=== PATIENT | female | born 1980 | race Caucasian/White ===

== ENCOUNTER 2017-11-29 06:57 | Inpatient (IN) ==
--- OUTSIDE RECORDS SUMMARY | 2017-11-29 07:04 | External Medical Summary | Continuity of Care Document ---
:1980 Author Organization [facility] Address [address] [place], [place] [address] Phone Support Name Relationship Address Phone Khadar Rosario spouse [address] [phone] [place] [address] Allergies, Adverse Reactions, Alerts Substance Reaction Severity Status No Known Drug Allergies Unknown Active Medications Medication Instructions Dosage Effective Dates Status Comments (start - stop) Diclegis 10 mg-10 take 1 tablet by - Active mg tablet,delayed oral route every release day in the morning, 1 tablet in the mid-afternoon, and 2 tablets at bedtime Prometrium 200 mg take 1 by Vaginal Not Available - Active capsule route every bedtime Aspir-81 81 mg take 1 tablet by 81 MG - Active tablet,delayed oral route every release day 28 mg take 1 by Oral route Not Available - Active iron-800 mcg every day tablet Problems Condition Effective Dates (start - stop) Clinical Status Encntr for f/u exam aft trtmt for cond - oth than malig neoplm Mild hyperemesis gravidarum - Encounter for suprvsn of normal - , first trimester 11 weeks gestation of - Recurrent loss Hyperemesis gravidarum with metabolic disturbance Recurrent loss Encntr for f/u exam aft trtmt for cond oth than malig neoplm Mild hyperemesis gravidarum - Encounter for suprvsn of normal - , first trimester 12 weeks gestation of - Mild hyperemesis gravidarum - Encntr screen for infections w sexl - mode of transmiss Encounter for screening for oth - infec/parastc diseases Encounter for suprvsn of normal - , first trimester Encounter for screening of - mother 8 weeks gestation of - Mild hyperemesis gravidarum - Encounter for suprvsn of normal - , first trimester 13 weeks gestation of - Mild hyperemesis gravidarum - Encounter for suprvsn of normal - , first trimester 10 weeks gestation of - Mild hyperemesis gravidarum - Encounter for suprvsn of normal - , first trimester 13 weeks gestation of - Encounter for screening for oth - infec/parastc diseases Encounter for screening for oth - infec/parastc diseases Active Procedures Procedure Date OB Visit No Charge Results Test Name Date and Time Measure Units Reference Range Abnormal Flag Comments Unknown Advance Directives Directive Yes / No Effective Date File Name Unknown Encounters Encounter Practice Location Reason(s) Diagnoses Date Provider Care Team Description For Visit Members Ginette Hernandez Mild hyperemesis Harriett Referring In Womens gravidarumEncounter 8-201 Serina. Provider: Gladis NUNEZ, for suprvsn of 8 700 [address] normal , Meenu Sanabria, 1522, first [id number] [place] [address], weeks gestation of Kartik Hernandez, 120, [place] [id number], David [facility] 120, David [place], tel:[phone] [place], [id number] , . [id number]. tel: tel:[phone] [facility] Mild hyperemesis Harriett Referring In Womens gravidarumEncounter 3-201 Serina. Provider: Gladis NUNEZ, for suprvsn of 8 700 [address] normal , Meenu Sanabria, 1522, first [id number] Center 700 [place], weeks gestation of Kartik Hernandez [place], 120, [place] [id number] Alcantar [facility] 120, [place] David [place], tel:[phone] [place], , [place]. [id number]. tel: tel:[phone] [facility] Mild hyperemesis Dec-2 Harriett Referring In Womens gravidarumEncounter 7-201 Serina. Provider: Health PA, for suprvsn of 7 700 [address] normal , Medical Harriett L, 1522, first Center [address] [place] [address], weeks gestation of Kartik Hernandez, 120, Center [id number], David [facility] 120, [place] David [place], tel:[phone] [place], , [place]. [id number]. tel: tel:[phone] [facility] Mild hyperemesis Dec-1 Harriett Referring In Womens gravidarumEncounter 9-201 Serina. Provider: Health PA, for suprvsn of 7 700 Serina [address] normal , Medical Harriett L, 1522, first [email or web address] [place] [address], weeks gestation of Kartik Hernandez, 120, Center [id number], David [facility] 120, [place] David [place], tel:[phone] [place], , [place]. [id number]. tel: tel:[phone] [facility] Mild hyperemesis Dec-1 Harriett Referring In Womens gravidarumEncounter 3-201 Serina. Provider: Health PA, for suprvsn of 7 700 [address] normal , Medical Harriett L, 1522, first [id number] [place] [address], weeks gestation of Kartik Hernandez, 120, Center [id number], David [facility] 120, [place] David [place], tel:[phone] [place], , [place]. [id number]. tel: tel:[phone] [facility] Mild hyperemesis Dec-0 Harriett Referring In Womens gravidarumEncntr 4-201 Serina. Provider: Health PA, screen for 7 700 Serina [address] Box infections w sexl Medical Harriett L, 1522, mode of Center [facility] [place], yennyEncvan Hernandez, [facility], for screening for 120, [place] [id number], oth infec/parastc David [facility] 120, [facility] [place], tel:2 for suprvsn of [phone] [place], normal , , [place]. [id number]. first tel: [facility] [phone] for screening of mother8 weeks gestation of [facility] Recurrent Nov-2 Gurinder Referring In Womens lossHyperemesis 7-201 Dinah. Provider: Gladis NUNEZ, gravidarum with 7 700 Serina PO Box metabolic Medical Harriett L, 1522, disturbance Center [facility] Dr Chirag, [facility], 120, [place] [id number], David [facility] 120, David [place], tel:[phone] , [place]. [id number]. tel: tel: [phone] [facility] Nov- Harriett In Womens 6-201 Serina. Gladis NUNEZ, 7 700 PO [address] Medical [address], [place] [address] Chirag, [facility], 120, [id number], David, [place], tel: [phone] , [place]. tel: [phone] [facility] Recurrent Kings-3 Harriett Referring In Womens lossEncntr for f/u 0-201 Serina. Provider: Gladis NUNEZ, exam aft trtmt for 7 700 Serina PO Box cond oth than malig Medical Harriett L, 1522, neoplm Center [facility] Dr Chirag, [facility], 120, [place] [id number], David [facility] 120, David [place], tel: [phone] [place], , [place]. [id number]. tel: tel:[phone] [facility] Encounter for Aug- Harriett Referring In Womens screening for oth 9-201 Serina. Provider: Gladis NUNEZ, infec/parastc 7 700 Serina PO Box diseases Medical Harriett L, 1522, Center [address], [facility], 120, [place] [id number], David, [facility] 120, David [place], tel:[phone] [place], , [place]. [id number]. tel: tel:[phone] Ginette Hernandez Encntr for f/u exam Nov- Harriett Referring In Womens aft trtmt for cond 1-201 Serina. Provider: Gladis NUNEZ, rosa [facility] 6 700 Serina PO Box neoplm Medical Harriett L, 1522, Center [facility] Dr Chirag, [facility], 120, [place] [id number], [facility], David [place], tel:[phone] [place], , [place]. [id number]. tel: tel:[phone] Ginette Hernandez Encounter for Kings-0 Harriett Referring In Womens screening for oth 1-201 Serina. Provider: Gladis NUNEZ, infec/parastc 6 700 Serina PO Box diseases Medical Harriett L, 1522, Center [address], [facility], 120, [place] [id number], [facility] 120, David [place], tel:[phone] [place], , [place]. [id number]. tel: tel:[phone] Ginette Hernandez September-2 Rudolph In Womens 1-200 Maryan. Health MAYRA, 8 700 PO [address] Medical [address], [place] [address] Chirag, [facility] [place], 120, [id number], David, [place], tel:[phone] , [place]. tel: [phone] Family History Family Member Diagnosis Age At Onset No family history of Ovarian Cancer No family history of Pulmonary Embolism No family history of Kidney Problems No family history of Lung Disease No family history of Breast Cancer Maternal Grandmother Diabetes mellitus No family history of Hypertension No family history of Epilepsy No family history of Cardiovascular Disease Maternal Grandmother Diabetes mellitus No family history of Colon Cancer No family history of Stroke No family history of Venous Thrombosis No family history of Thyroid Disorder No family history of Osteoporosis Immunizations Vaccine Date Status Comments Unknown Payers Payer name Insurance type Covered republican ID Authorization(s) TRACEY ALEMAN [id number] Social History Type Description Quantity Date Captured Alcohol Use Details No Caffeine Use Details Unknown Tobacco Use Status Unknown Smoking Status Never smoker Vital Signs Date / Height Weight BMI Pulse Blood Temperature Respiratory Body Head BMI Time: Rate Pressure Rate Surface Circumference percentile Area Unknown Chief Complaint And Reason For Visit Unknown Chief Complaint And Reason For Visit Reason For Referral Reason For Referral Unknown Plan Of Care Date Type Action Status Appointment Kerry Rosario BOOKED Appointment Kerry Rosario BOOKED Appointment Kerry Rosario BOOKED Date Type Problem Goal Intervention Status Start Date Unknown. History Of Present Illness Encounter Date Complaint History Of Present Illness This patient has no known history of present illness Functional Status Encounter Date Functional Assessment Cognitive Assessment Unknown Medications Administered Medication Instructions Dosage Effective Dates (start - stop) Status Comments Drug Treatment Unknown Instructions Date Instruction Additional Information HIV and other routine tests risk factors identified by history anticipated course of care nutrition and weight gain counseling, special diet toxoplasmosis precautions (cats / raw meat) sexual activity exercise indications for ultrasound influenza vaccine environmental / work hazards travel use of any medications (including supplements, vitamins, herbs, OTC drugs) domestic violence seat belt use childbirth classes / hospital facilities hospital registration genetic testing new ob handbook Giving encouragement to exercise Related to Body mass index 25.0-25.9 HIV and other routine tests risk factors identified by history anticipated course of care nutrition and weight gain counseling, special diet toxoplasmosis precautions (cats / raw meat) sexual activity exercise indications for ultrasound influenza vaccine environmental / work hazards travel use of any medications (including supplements, vitamins, herbs, OTC drugs) domestic violence seat belt use childbirth classes / hospital facilities hospital registration genetic testing Giving encouragement to exercise Related to Body mass index 25.0-25.9 HIV and other routine tests risk factors identified by history anticipated course of care nutrition and weight gain counseling, special diet toxoplasmosis precautions (cats / raw meat) sexual activity exercise indications for ultrasound influenza vaccine environmental / work hazards travel tobacco (ask, advise, assess, assist and arrange) alcohol illicit / recreational drugs use of any medications (including supplements, vitamins, herbs, OTC drugs) smoking counseling domestic violence seat belt use childbirth classes / hospital facilities hospital registration genetic testing
--- OUTSIDE RECORDS SUMMARY | 2017-11-29 07:04 | External Medical Summary | Continuity of Care Document ---
:1980 Author Organization [facility] Address [address] [place], [place] [address] Phone Support Name Relationship Address Phone Khadar Rosario spouse [address] [phone] [place] [address] Allergies, Adverse Reactions, Alerts Substance Reaction Severity [...] for cond - oth than malig neoplm Recurrent loss Hyperemesis gravidarum with metabolic disturbance Recurrent loss Encntr for f/u exam aft trtmt for cond oth than malig neoplm Mild hyperemesis gravidarum - Encntr screen for infections w sexl - mode of transmiss Encounter for screening for oth - infec/parastc diseases Encounter for suprvsn of normal - , first trimester Encounter for screening of - mother 8 weeks gestation of - Encounter for screening for oth - infec/parastc diseases Encounter for screening for oth - infec/parastc diseases Active Procedures Procedure Date Unknown Results Test Name Date and Time Measure Units Reference Range Abnormal Flag Comments Unknown Advance Directives Directive Yes / No Effective Date File Name Unknown Encounters Encounter Practice Location Reason(s) Diagnoses Date Provider Care Team Description For Visit Members [facility] Mild hyperemesis Harriett Referring In Womens gravidarumEncntr 4-201 Serina. Provider: Gladis NUNEZ, screen for 7 700 Serina [address] infections w sexl Medical Harriett L, 1522, mode of Center 700 [place], yennyEncvan Hernandez, [facility], for screening for 120, [place] [id number], ot infec/parastc [facility] 120, [facility] David [place], tel: for suprvsn of [phone] [facility] normal , , [place]. [id number]. first tel: [facility]: [facility] [phone] for screening of mother8 weeks gestation of Associates [facility] Recurrent Gurinder Referring In Womens lossHyperemesis 7-201 Dinah. Provider: Gladis NUNEZ, gravidarum with 7 700 Serina PO Box metabolic Meenu Lorenzana L, 1522, disturbance Center [facility] Dr Chirag, [facility], 120, [place] [id number], David [place] [address], David [place], tel: [phone] [facility] , [place]. [id number]. tel: tel: [phone] Ginette Hernandez Mar- Harriett In Womens 6-201 Serina. Gladis NUNEZ, 7 700 [address] Medical [address], [place] [address] Chirag, [facility], 120, [id number], David, [facility], tel: [phone] , [place]. tel: [phone] Ginette Hernandez Recurrent Harriett Referring In Womens lossEncntr for f/u 0-201 Serina. Provider: Gladis NUNEZ, exam aft trtmt for 7 700 Serina PO Box cond oth than malig Medical Harriett L, 1522, neoplm Center [address], [facility] [place], 120, Center [id number], David, [facility] 120, [place] David [place], tel:[phone] [place], , [place]. [id number]. tel: tel:[phone] [facility] Encounter for Apr-1 Harriett Referring In Womens screening for oth 9-201 Serina. Provider: Gladis NUNEZ, infec/parastc 7 700 Serina PO Box diseases Medical Harriett L, 1522, Center [address], [facility] [place], 120, Center [id number], David, [facility] 120, [place] David [place], tel:[phone] [place], , [place]. [id number]. tel: tel:[phone] Ginette Hernandez Encntr for f/u exam Yunior-1 Harriett Referring In Womens aft trtmt for cond 1-201 Serina. Provider: zane Andujar 6 700 Serina PO Box neoplm Medical [facility] L, 1522, Center [address], [facility] [place], 120, [place] [id number], David, [facility] 120, [place] David [place], tel:[phone] [place], , [place]. [id number]. tel: tel:[phone] Ginette Hernandez Encounter for Kings-0 Harriett Referring In Womens screening for oth 1-201 Serina. Provider: Gladis NUNEZ, infec/parastc 6 700 Serina PO Box diseases Medical Harriett L, 1522, Center [address], [facility] [place], 120, [place] [id number], David, [facility] 120, [place] David [place], tel:[phone] [place], , [place]. [id number]. tel: tel:[phone] Ginette Hernandez May-2 Rudolph In Womens 1-200 Maryan. Gladis NUENZ, 8 700 [address] Medical [address], Center Dr Chirag, [facility] [place], 120, [id number], [facility] [place], tel:[phone] , . tel:[phone] Family History Family Member Diagnosis Age At [...] Unknown Payers Payer name Insurance type Covered democrat ID Authorization(s) [facility] [id number] Social History Type Description Quantity Date Captured Unknown Vital Signs Date / Height Weight BMI [...]
--- OUTSIDE RECORDS SUMMARY | 2017-11-29 07:05 | External Medical Summary | Continuity of Care Document ---
:1980 Author Organization [facility] [employer] [facility] Address [address] [place], [place] [address] Phone Support Name Relationship Address Phone Khadar Rosario spouse [address] [phone] [place] [address] Allergies, Adverse Reactions, Alerts Substance Reaction Severity Status No Known Drug Allergies Unknown Active Medications Medication Instructions Dosage Effective Status Comments Dates (start - stop) Diclegis 10 mg-10 mg take 1 tablet by - Active tablet,delayed oral route every release day in the morning, 1 tablet in the mid-afternoon, and 2 tablets at bedtime Zofran ODT 4 mg take 1 by Oral Not Available - Active disintegrating route every 6 tablet hours as needed for nausea Prometrium 200 mg take 1 by Vaginal Not Available - Active capsule route every bedtime Aspir-81 81 mg take 1 tablet by 81 MG - Active tablet,delayed oral route every release day 28 mg take 1 by Oral Not Available - Active iron-800 mcg tablet route every day Diclegis 10 mg-10 mg take 1 tablet by - No Longer tablet,delayed oral route every Active release day in the morning, 1 tablet in the mid-afternoon, and 2 tablets at bedtime Problems Condition Effective Dates (start - stop) Clinical Status Encntr for f/u exam aft trtmt for cond - oth than malig neoplm Recurrent loss Hyperemesis gravidarum with metabolic disturbance Recurrent loss Encntr for f/u exam aft trtmt for cond oth than malig neoplm Encounter for screening for oth - infec/parastc diseases Encounter for screening for oth - infec/parastc diseases Active Procedures Procedure Date Office/outpatient visit,est, mod Results Test Name Date and Time Measure Units Reference Range Abnormal Flag Comments Unknown Advance Directives Directive Yes / No Effective Date File Name Unknown Encounters Encounter Practice Location Reason(s) Diagnoses Date Provider Care Team Description For Visit Members Office/outpat Ginette Hernandez early OB Recurrent Nov-2 Gurinder Referring ient In Womens (chief 7-201 Dinah. Provider: visit,est, Health MAYRA, complaint) lossHyperemesis 7 700 Serina mod [address], gravidarum with Meenu Sanabria [place], [place], metabolic Center 700 [id number], branden Hernandez, [facility] 120, [place] tel:[phone] David [facility] 120, [address] [place], [place], [id number] [place], , [place]. [id number]. tel: tel:[phone] Ginette Hernandez Nov- Harriett In Womens 6-201 Serina. Gladis NUNEZ, 7 700 [address], [place], Center [id number], , [facility] 120, tel:[phone] [place], [address] [place], [id number] , [place]. tel: [phone] Ginette Hernandez Recurrent Kings-3 Harriett Referring In Womens 0-201 Serina. Provider: Gladis NUNEZ, kaeEncntr for 7 [address] Ser[address], f/u exam aft [place], trtmt for cond Center 700 [id number], ot [address], [facility] neoplm 120, [place] tel:[phone] David [facility] 120, [address] [place], [place], [id number] [place], , [place]. [id number]. tel: tel:[phone] Ginette Hernandez Encounter for Apr- Harriett Referring In Womens screening for 9-201 Serina. Provider: Gladis NUNEZ, ot 7 [address], infec/parastc [place], diseases Center 700 [id number], , [facility] 120, [place] tel:+21 David [facility] 120, [address] [place], [place], [id number] [place], , [place]. [id number]. tel: tel:[phone] Ginette Hernandez Encntr for f/u Nov-1 Harriett Referring In Womens exam aft trtmt 1-201 Serina. Provider: konstantin Andujar cond oth 6 700 [address], than [facility] Medical Harriett , [place], [place], neoplm Center 700 [id number], , [facility] 120, [place] tel:+[phone] [facility] 120, [address] [place], [place], [id number] [place], , [place]. [id number]. tel: tel:+ [phone] Ginette Hernandez Encounter for Kings-0 Harriett Referring In Womens screening for 1-201 Serina. Provider: Gladis NUNEZ, ot 6 700 [address], infec/parastc Medical Harriett [place], [place], diseases Center 700 [id number], , [facility] 120, [place] tel:[phone] [facility] 120, [address] [place], [place], [id number] [place], , [place]. [id number]. tel: tel:+ [phone] Ginette Hernandez September-2 Rudolph In Womens 1-200 Maryan. Gladis NUNEZ, 8 700 [address], [place], [place], [place] [id number], , [facility] 120, tel:+[phone] [place] [address] [place], [id number] , [place]. tel: [phone] Family History Family Member Diagnosis Age At [...] name Insurance type Covered democrat ID Authorization(s) TRACEY ALEMAN [id number] Social History Type Description Quantity Date Captured Alcohol Use Details No Caffeine Use Details Unknown Tobacco Use Status Never smoked tobacco Smoking Status Never smoker Vital Signs Date / Height Weight BMI Pulse Blood Temperature Respiratory Body Head BMI Time: Rate Pressure Rate Surface Circumference percentile Area 0.00 in 167.60 27.0 74 123/79 lbs 5 /min mm[Hg] 2:01 kg/m PM eter (2) Chief Complaint And Reason For Visit Most recent encounter only, dated '04/23/2017 14:00'. early OB (chief complaint). Description: LMP 103. 7 wks 6 days with EDC of 12/04/17. Positive preg test 04/02/17. Hx of multiple SAB's and bad hyperemesis with pregnancies. Vomiting 2 x/day. OnDiclefis ( 2 at hs) which is helping a little. No bl/sp. Reason For Referral Reason For Referral Unknown Plan Of Care Date Type Action Status Appointment Kerry Rosario BOOKED Appointment Kerry Rosario BOOKED Appointment Kerry Rosario BOOKED Kerry Berry BOOKED Appointment Kerry Rosario BOOKED Kerry Berry BOOKED Appointment Kerry Rosario BOOKED Appointment Kerry Rosario BOOKED Appointment Kerry Rosario BOOKED Date Type Problem Goal Intervention Status Start Date Unknown. History Of Present Illness Encounter Date Complaint History Of Present Illness early OB LMP 103. 7 wks 6 days with EDC of 12/04/17. Positive preg test 04/02/17. Hx of multiple SAB's and bad hyperemesis with pregnancies. Vomiting 2 x/day. On Diclefis ( 2 at hs) which is helping a little. No bl/sp. Functional Status Encounter Date Functional Assessment Cognitive Assessment Unknown Medications Administered Medication Instructions Dosage Effective Dates (start - stop) Status Comments Drug Treatment Unknown Instructions Date Instruction Additional Information Giving encouragement to exercise Related to Body [...] / hospital facilities hospital registration genetic testing Zika virus assessment & precautions Giving encouragement to exercise Related to Body [...]
--- OUTSIDE RECORDS SUMMARY | 2017-11-29 07:05 | External Medical Summary | Continuity of Care Document ---
:1980 Author Organization [facility] Address [address] [place], [place] [address] Phone Support Name Relationship Address Phone Khadar Rosario spouse [address] [phone] [place] [address] Allergies, Adverse Reactions, Alerts Substance Reaction Severity Status No Known Drug Allergies Unknown Active Medications Medication Instructions Dosage Effective Dates Status Comments (start - stop) 28 mg take 1 by Oral route Not Available - Active iron-800 mcg every day tablet Problems Condition Effective Dates (start - stop) Clinical Status Encntr for f/u exam aft trtmt for cond - oth than malig neoplm Mild hyperemesis gravidarum - Unspecified abnormal findings in urine - Encounter for suprvsn of normal - , second trimester 25 weeks gestation of - Recurrent loss Hyperemesis gravidarum with metabolic disturbance Recurrent loss Encntr for f/u exam aft trtmt for cond oth than malig neoplm Mild hyperemesis gravidarum - Encounter for suprvsn of normal - , first trimester 12 weeks gestation of - Mild hyperemesis gravidarum - Unspecified abnormal findings in urine - Encounter for suprvsn of normal - , second trimester 15 weeks gestation of - Mild hyperemesis gravidarum - Encounter for suprvsn of normal - , second trimester 16 weeks gestation of - Mild hyperemesis gravidarum - Encntr screen for infections w sexl - mode of transmiss Encounter for screening for oth - infec/parastc diseases Encounter for suprvsn of normal - , first trimester Encounter for screening of - mother 8 weeks gestation of - Mild hyperemesis gravidarum - Encounter for suprvsn of normal - , second trimester 17 weeks gestation of - Mild hyperemesis gravidarum - Encounter for suprvsn of normal - , first trimester 13 weeks gestation of - Mild hyperemesis gravidarum - Encounter for suprvsn of normal - , first trimester 11 weeks gestation of - Mild hyperemesis gravidarum - Encounter for suprvsn of normal - , first trimester 10 weeks gestation of - Mild hyperemesis gravidarum - Unspecified placental disorder, second - trimester Encounter for suprvsn of normal - , second trimester 23 weeks gestation of - Mild hyperemesis gravidarum - Encounter for suprvsn of normal - , first trimester 13 weeks gestation of - Unspecified placental disorder, second - trimester 25 weeks gestation of - Unspecified placental disorder, second - trimester Encounter for suprvsn of normal - , second trimester 21 weeks gestation of - Unspecified placental disorder, second - trimester Encounter for suprvsn of normal - , second trimester 19 weeks gestation of - Unspecified placental disorder, second - trimester Encounter for suprvsn of normal - , second trimester 27 weeks gestation of - Encounter for screening for oth - infec/parastc diseases Encounter for screening for oth - infec/parastc diseases Encounter for suprvsn of normal - , second trimester 19 weeks gestation of - Active Procedures Procedure Date OB Visit No Charge Automated hemogram (CBC) Glucose test Venpnctr fngr/heel/ear stick routne Results Test Name Date and Time Measure Units Reference Range Abnormal Flag Comments Panel Description: CBC With Differential/Platelet WBC 13:02:00 10.4 x10E3/uL 3.4-10.8 RBC 13:02:00 3.71 x10E6/uL 3.77-5.28 L Hemoglobin 13:02:00 10.9 g/dL 11.1-15.9 L Hematocrit 13:02:00 34.4 % 34.0-46.6 MCV 13:02:00 93 fL 79-97 MCH 13:02:00 29.4 pg 26.6-33.0 MCHC 13:02:00 31.7 g/dL 31.5-35.7 RDW 13:02:00 13.7 % 12.3-15.4 Platelets 13:02:00 263 x10E3/uL 150-379 Neutrophils 13:02:00 76 % Not Estab. Lymphs 13:02:00 18 % Not Estab. Monocytes 13:02:00 5 % Not Estab. Eos 13:02:00 1 % Not Estab. Basos 13:02:00 0 % Not Estab. Immature Cells 13:02:00 Neutrophils (Absolute) 13:02:00 7.8 x10E3/uL 1.4-7.0 H Lymphs (Absolute) 13:02:00 1.9 x10E3/uL 0.7-3.1 Monocytes(Absolute) 13:02:00 0.6 x10E3/uL 0.1-0.9 Eos (Absolute) 13:02:00 0.2 x10E3/uL 0.0-0.4 Baso (Absolute) 13:02:00 0.0 x10E3/uL 0.0-0.2 Immature Granulocytes 13:02:00 0 % Not Estab. Immature Grans (Abs) 13:02:00 0.0 x10E3/uL 0.0-0.1 NRBC 13:02:00 Hematology Comments: 13:02:00 Panel Description: Glucose [Mass/volume] in Serum or Plasma --1 hour post 50 g glucose PO Gestational Diabetes Screen 13:02:00 73 mg/dL 65-135 Advance Directives Directive Yes / No Effective Date File Name Unknown Encounters Encounter Practice Location Reason(s) Diagnoses Date Provider Care Team Description For Visit Members Ginette Hernandez Unspecified Aug- Harriett Referring In Womens placental 6-201 Serina. Provider: orly Andujar, [facility] 8 700 Serina PO Box trimesterEncounte Medical Harriett Sanabria, 1522, r for supraileen of [address], normal , Kartik Hernandez, second 120, [place] [id number], [email or web address] weeks [facility] 120, [place] gestation of David MONTESINOS, tel: [phone] [facility] , [place]. [id number]. tel: tel:[phone] Ginette Hernandez Mild hyperemesis Apr-0 Harriett Referring In Womens gravidarumUnspeci 2-201 Serina. Provider: Gladis NUNEZ fied abnormal 8 700 Serina PO Box findings in Medical Harriett L, 1522, urineEncounter Center [address] [place] [address], for suprvsn of Kartik Hernandez, normal , 120, Center [id number], second [facility] 120, [place] [email or web address] weeks David MONTESINOS, tel:2 gestation of [id number] [facility] , [place]. [id number]. tel: tel:[phone] Ginette Hernandez Unspecified Apr-0 Harriett Referring In Womens Ultrasound placental 2-201 Serina. Provider: Health MAYRA, disorder, second 8 700 Serina PO Box [email or web address] weeks Medical Harriett L, 1522, gestation of [address], DrKartik, 120, Center [id number], Hernandez, [facility] 120, [place] David MONTESINOS, tel:[phone] [place], , [place]. [id number]. tel: tel:[phone] Associates David Mild hyperemesis Mar-1 Harriett Referring In Womens gravidarumUnspeci 9-201 Serina. Provider: Gladis NUNEZ, fied placental 8 700 Serina PO Box disorder, second Medical Harriett L, 1522, trimesterEncounte Center [address] [place] [address], r for suprvsn of Kartik Hernandez, normal , 120, Center [id number], second David [facility] 120, [place] [email or web address] weeks David MONTESINOS, tel:+[phone] [place], , [place]. [id number]. tel: tel:[phone] Associates David Unspecified Mar-0 Harriett Referring In Womens placental 5-201 Serina. Provider: Gladis NUNEZ, disorder, second 8 700 Serina PO Box [facility] Harriett L, 1522, r for suprvsn of [address], normal , Kartik Hernandez, second 120, Center [id number], [email or web address] weeks Hernandez, [facility] 120, [place] gestation of David MONTESINOS, tel:[phone] [place], , [place]. [id number]. tel: tel:[phone] Associates David Unspecified Feb-1 Harriett Referring In Womens placental 9-201 Serina. Provider: Gladis NUNEZ, disorder, second 8 700 Serina PO Box [facility]En[facility] Medical Harriett L, 1522, r for suprvsn of [address], normal , Kartik Hernandez, second 120, Center [id number], [email or web address] weeks Hernandez, Kartik 120, [place] gestation of David MONTESINOS tel:+ [phone] [place], , [place]. [id number]. tel: tel:[phone] Associates David Encounter for Feb-1 Harriett Referring In Womens Ultrasound suprvsn of normal 9-201 Serina. Provider: Gladis NUNEZ, , second 8 700 Serina PO Box [email or web address] weeks Medical Harriett L, 1522, gestation of Center [address], , [facility] [address] [place], 120, Center [id number], Hernandez, Kartik 120, [place] David MONTESINOS, tel:+ [phone] [place], , [place]. [id number]. tel: tel:[phone] Associates David Mild hyperemesis Feb-0 Harriett Referring In Womens gravidarumEncount 5-201 Serina. Provider: Gladis NUNEZ, er for suprvsn of 8 700 Serina PO Box normal , Medical Harriett L, 1522, second Center [address], [email or web address] [facility] [place], gestation of 120, Center [id number], David, Kartik 120, [place] David MONTESINOS, tel:[phone] [place], , [place]. [id number]. tel: tel:[phone] Associates David Mild hyperemesis Kofi- Harriett Referring In Womens gravidarumEncount 4-201 Serina. Provider: Gladis NUNEZ, er for suprvsn of 8 700 Serina PO Box normal , Medical Harriett L, 1522, second Center [address], [email or web address] weeks Dr [facility] [place], gestation of 120, Center [id number], Hernandez, Kartik 120, [place] David MONTESINOS, tel:+ [phone] [place], , [place]. [id number]. tel: tel:[phone] Associates David Mild hyperemesis Kofi- Harriett Referring In Womens gravidarumUnspeci 8-201 Serina. Provider: Gladis NUNEZ, fied abnormal 8 700 Serina PO Box findings in Medical Harriett L, 1522, urineEncounter Center [address] [place] [address], for suprvsn of Kartik Hernandez, normal , 120, Center [id number], second David Kartik 120, [place] [email or web address] weeks David MONTESINOS, tel:[phone] [place], , [place]. [id number]. tel: tel:[phone] Associates David Mild hyperemesis Kofi-0 Harriett Referring In Womens gravidarumEncount 8-201 Serina. Provider: Health PA, er for suprvsn of 8 700 Serina PO Box normal , Medical Harriett Sanabria, 1522, first [email or web address] [place] [address], weeks gestation Kartik Hernandez, of 120, Center [id number], David [facility] 120, [place] David MONTESINOS, tel:[phone], , [place]. [id number]. tel: tel:[phone] Ginette Hernandez Mild hyperemesis Kofi-0 Harriett Referring In Womens gravidarumEncount 3-201 Serina. Provider: Health PA, er for suprvsn of 8 700 Serina PO Box normal , Medical Harriett Sanabria, 1522, first [email or web address] [place] [address], weeks gestation Kartik Hernandez, of 120, Center [id number], David [facility] 120, [place] David MONTESINOS, tel:[phone], , [place]. [id number]. tel: tel:[phone] Ginette Hernandez Mild hyperemesis Dec-2 Harriett Referring In Womens gravidarumEncount 7-201 Serina. Provider: Health PA, er for suprvsn of 7 700 Serina PO Box normal , Medical Harriett Sanabria, 1522, first [email or web address] [place] [address], weeks gestation Kartik Hernandez, of 120, Center [id number], David [facility] 120, [place] Daivd MONTESINOS, tel:[phone], , [place]. [id number]. tel: tel:[phone] Ginette Hernandez Mild hyperemesis Dec-1 Harriett Referring In Womens gravidarumEncount 9-201 Serina. Provider: Health PA, er for suprvsn of 7 700 Serina PO Box normal , Medical Harriett L, 1522, first [email or web address] [place], [place] [address], weeks gestation Kartik Hernandez, of 120, Center , David [facility] 120, David MONTESINOS, tel:[phone] [place], , [place]. [id number]. tel: tel:[phone] Associates David Mild hyperemesis Dec-1 Harriett Referring In Womens gravidarumEncount 3-201 Serina. Provider: Health MAYRA, er for suprvsn of 7 700 Serina PO Box normal , Medical Harriett L, 1522, first Center [address] [place] [address], weeks gestation Kartik Hernandez, of 120, [place] [id number], David [facility] 120, [place] David MONTESINOS, tel:[phone] [place], , [place]. [id number]. tel: tel:[phone] Associates David Mild hyperemesis Dec-0 Harriett Referring In Womens gravidarumEncntr 4-201 Serina. Provider: Gladis NUNEZ, screen for 7 700 Serina PO Box infections w sexl Medical Harriett L, 1522, mode of Center [address] [place] [address], transmissEncounte Kartik Hernandez, r for screening 120, [place] [id number], for oth David [facility] 120, [place] infec/parastc David MONTESINOS, tel:[phone], for suprvsn of , [place]. [id number]. normal , tel: tel:[phone] trimesterEncounte r for screening of mother8 weeks gestation of Associates David Recurrent Nov- Gurinder Referring In Womens 7-201 Dinah. Provider: Gladis NUNEZ, lossHyperemesis 7 700 Serina PO Box gravidarum with Medical Harriett L, 1522, metabolic Center [address], [facility], 120, Center [id number], David, [facility] 120, [place] David MONTESINOS, tel:[phone], , [place]. [id number]. tel: tel:[phone] Ginette Hernandez Recurrent Kings-3 Harriett Referring In Womens 0-201 Serina. Provider: Health MAYRA, lossEncntr for 7 700 Serina PO Box f/u exam aft Medical Harriett L, 1522, trtmt for cond [address], ot than angelina Hernandez, [facility], [facility] 120, [place] [id number], David [facility] 120, [place] David MONTESINOS, tel:[phone], , [place]. [id number]. tel: tel:[phone] Ginette Hernandez Encounter for Apr-1 Harriett Referring In Womens screening for oth 9-201 Serina. Provider: Health MAYRA, infec/parastc 7 700 Serina PO Box diseases Medical Harriett L, 1522, Center [address] Dr Ch[address]ag, [facility], 120, Center [id number], David [facility] 120, David MONTESINOS, tel:[phone] [place], , [place]. [id number]. tel: tel:[phone] Ginette Hernandez Encntr for f/u Yunior-1 Harriett Referring In Womens exam aft trtmt 1-201 Serina. Provider: Gladis NUNEZ, for cond oth than 6 700 Serina PO Box [facility] Harriett L, 1522, Center [address] Dr [address]ir[address], [facility], 120, [place] [id number], David [facility] 120, [place] David MONTESINOS, tel:[phone], , [place]. [id number]. tel: tel:[phone] Ginette Hernandez Encounter for Kings-0 Harriett Referring In Womens screening for oth 1-201 Serina. Provider: Health PA, infec/parastc 6 700 Serina PO Box diseases Medical Harriett L, 1522, Center [address]ir[address], [facility], 120, [place] [id number], David [facility] 120, YAMEL, David, tel: [phone] [place], [address] , . [id number]. tel: tel: [phone] Ginette Hernandez [place] In Womens 1-200 [facility], 8 700 Box Medical 1522, Center Dr Chirag, [facility] [place], 120, [id number], Hernandez, [place], tel: [phone] , [place]. tel: [phone] Family History Family Member Diagnosis Age At [...] name Insurance type Covered republican ID Authorization(s) [facility] [id number] Social History Type Description Quantity Date Captured Alcohol Use Details No Caffeine Use Details Unknown Tobacco Use Status Unknown Smoking Status Never smoker Vital Signs Date / Height Weight BMI Pulse Blood Temperature Respiratory Body Head BMI Time: Rate Pressure Rate Surface Circumference percentile Area 179.10 28.0 / lbs 5 mm[Hg] 10:13 kg/m AM eter (2) Chief Complaint And Reason For Visit Unknown Chief Complaint And Reason For Visit Reason For Referral Reason For Referral Unknown Plan Of Care Date Type Action Status Appointment Kerry Rosario BOOKED Appointment Kerry Rosario BOOKED Appointment Kerry Rosario BOOKED Future Order: Radiology Order Ultrasound OB Follow-up ([id number]) Ordered Future Order: Radiology Order Complete OB Ultrasound > 14 Ordered Weeks ([id number]) Date Type Problem Goal Intervention Status Start [...]
--- OUTSIDE RECORDS SUMMARY | 2017-11-29 07:05 | External Medical Summary | Continuity of Care Document ---
:1980 Author Organization [facility] Address [address] [place], [place] [id number] Phone Support Name Relationship Address Phone Khadar Rosario spouse [address] [phone] [place] [address] Allergies, Adverse Reactions, Alerts Substance Reaction Severity [...] first trimester 10 weeks gestation of - Recurrent loss Hyperemesis [...] first trimester 11 weeks gestation of - Encounter for screening [...] For Visit Members Associates David Mild hyperemesis Dec-2 Harriett Referring In Womens gravidarumEncounter 7-201 Serina. Provider: Gladis NUNEZ, for suprvsn of 7 700 Serina PO Box normal , Medical Harriett L, 1522, first [email or web address] [place] [address], weeks gestation of Kartik Hernandez [place], 120, [place] [id number], David [facility] 120, [place] David MONTESINOS, tel:[phone] [place], [address] , [place]. [id number]. tel: tel:[phone] Associates David Mild hyperemesis Dec-1 Harriett Referring In Womens gravidarumEncounter 9-201 Serina. Provider: Gladis NUNEZ, for suprvsn of 7 700 Serina PO Box normal , Medical Harriett L, 1522, first [email or web address] [address] [place] [address], weeks gestation of Kartik Hernandez, 120, [place] [id number], David [facility] 120, [place] David MONTESINOS, tel:[phone] YAMEL, [address] , . [id number]. tel: tel:[phone] Associates David Mild hyperemesis Dec-1 Harriett Referring In Womens gravidarumEncounter 3-201 Serina. Provider: Galdis NUNEZ, for suprvsn of 7 700 Serina PO Box normal , Medical Harriett L, 1522, first [email or web address] [place], [place] [address], weeks gestation of Dr, [facility], 120, Center , [facility] 120, David MONTESINOS, tel:+ [phone] [place], , [place]. [id number]. tel: tel:[phone] Associates David Mild hyperemesis Dec-0 Harriett Referring In Womens gravidarumEncntr 4-201 Serina. Provider: Gladis NUNEZ, screen for 7 700 Serina PO Box infections w sexl Medical Harriett L, 1522, mode of Center [facility] Chirag, transmissEncvan Hernandez, [facility], for screening for 120, [place] [id number], ot infec/parastc [place] [address], diseasesEncmcl[facility] David MONTESINOS, tel: for suprvsn of [phone] [facility] normal , , [place]. [id number]. first tel: tel:+ trimesterEncmclaren [facility] [phone] for screening of mother8 weeks gestation of Associates David Recurrent Mar-2 Gurinder Referring In Womens lossHyperemesis 7-201 Dinah. Provider: Gladis NUNEZ, gravidarum with 7 700 Serina PO Box metabolic Medical Hrariett L, 1522, disturbance Center [facility] Dr Chirag, [facility], 120, [place] [id number], [place] [address], David MONTESINOS, tel:+ [phone] [place], , [place]. [id number]. tel: tel:[phone] Associates David Nov- Harriett In Womens 6-201 Serina. Gladis NUNEZ, 7 700 PO Box Medical 1522, Center Dr Chirag, [facility], 120, [id number], David, YAMEL, tel:[phone] , [place]. tel: [phone] Ginette Hernandez Recurrent Kings-3 Harriett Referring In Womens lossEncntr for f/u 0-201 Serina. Provider: Health MAYRA, exam aft trtmt for 7 700 Serina PO Box cond oth than malig Medical [facility] L, 1522, neoplm Center [address], [facility] [place], 120, Center [id number], David, [facility] 120, [place] David MONTESINOS, tel:[phone] [place], , [place]. [id number]. tel: tel:[phone] Ginette Hernandez Encounter for Apr- Harriett Referring In Womens screening for oth 9-201 Serina. Provider: Health MAYRA, infec/parastc 7 700 Serina PO Box diseases Medical Harriett L, 1522, Center [address], [facility], 120, Center [id number], David, [facility] 120, [place] David MONTESINOS, tel:[phone] [place], , [place]. [id number]. tel: tel:[phone] Hernandez Encntr for f/u exam Nov- Harriett Referring In Womens aft trtmt for cond 1-201 Serina. Provider: zane Andujar [facility] 6 700 Serina PO Box [facility], 1522, Center [address], [facility], 120, Center [id number], [facility] 120, [place] David MONTESINOS, tel:[phone] [place], , [place]. [id number]. tel: tel:[phone] Hernandez Encounter for Kings-0 Harriett Referring In Womens screening for oth 1-201 Serina. Provider: Gladis NUNEZ, infec/parastc 6 700 Serina PO Box diseases Medical Harriett L, 1522, Center [address], [facility] [place], 120, Center [id number], David, [facility] 120, [place] David MONTESINOS, tel:[phone] [place], , [place]. [id number]. tel: tel:[phone] Ginette Hernandez September-2 Ronni In Womens 1-200 MaryanFormerly [facility], 8 700 PO [facility] 1522, [place] Dr [place]irag, [facility] [place], 120, [id number], [place], [place], tel:[phone] [address] , [place]. tel: [phone] Family History Family Member Diagnosis Age At [...] Unknown Payers Payer name Insurance type Covered green party ID Authorization(s) [facility] YAMEL BL [id number] Social History Type Description Quantity Date Captured [...]
--- OUTSIDE RECORDS SUMMARY | 2017-11-29 07:05 | External Medical Summary | Continuity of Care Document ---
:1980 Author Organization [facility] Address [address] [place], [place] [id number] Phone Support Name Relationship Address Phone Khadar Rosario spouse [address] [phone] [place] [address] Allergies, Adverse Reactions, Alerts Substance Reaction Severity Status No Known Drug Allergies Unknown Active Medications Medication Instructions Dosage Effective Dates Status Comments (start - stop) 28 mg take 1 by Oral route Not Available - Active iron-800 mcg every day tablet Problems Condition Effective Dates (start - stop) Clinical Status Encntr for f/u exam aft trtmt for cond - oth than malig neoplm Encounter for suprvsn of normal - , third trimester Encounter For Screening For - Streptococcus B 36 weeks gestation of - Recurrent loss Hyperemesis [...] second trimester 25 weeks gestation of - Mild hyperemesis gravidarum [...] second trimester 27 weeks gestation of - Unspecified placental disorder, third - trimester Encounter for suprvsn of normal - , third trimester 32 weeks gestation of - Unspecified placental disorder, third - trimester Encounter for suprvsn of normal - , third trimester 29 weeks gestation of - Unspecified placental disorder, third - trimester 32 weeks gestation of - Unspecified placental disorder, third - trimester Encounter for suprvsn of normal - , third trimester 34 weeks gestation of - Unspecified placental disorder, third - trimester Encounter for suprvsn of normal - , third trimester 38 weeks gestation of - Encounter for screening for oth - infec/parastc diseases Encounter for screening for oth - infec/parastc diseases Encounter for suprvsn of normal - , second trimester 19 weeks gestation of - Encounter for suprvsn of normal - , third trimester 37 weeks gestation of - Active Procedures Procedure Date OB Visit No Charge Cult, pathgnc orgnsm, screen Results Test Name Date and Time Measure Units Reference Range Abnormal Flag Comments Panel Description: Strep Gp B Culture Strep Gp B Negative Negative Centers for Disease Control Culture 11:04:00 and Prevention (CDC) and [place] Congressof Obstetricians and Gynecologists (ACOG) guidelines for prevention ofperinatal group B streptococcal (GBS) disease specify co-collection ofa vaginal and rectal swab specimen to maximize sensitivity of GBSdetection. Per the CDC and ACOG, swabbing both the lower vagina andrectum substantially increases the yield of detection compared withsampling the vagina alone. .Penicillin G, ampicillin, or cefazolin are indicated for intrapartumprophylaxis of GBS colonization. Reflex susceptibilitytesting should be performed prior to use of clindamycin only on GBSisolates from penicillin-allergic women who are considered a high riskfor anaphylaxis. Treatment with vancomycin without additional testingis warranted if resistance to clindamycin is noted. Advance Directives Directive Yes / No Effective Date File Name Unknown Encounters Encounter Practice Location Reason(s) Diagnoses Date Provider Care Team Description For Visit Members Ginette Hernandez Unspecified Kings-2 Harriett Referring In Womens placental 7-201 Serina. Provider: Gladis NUNEZ, disorder, third 8 700 Serina PO Box trimesterEncounte Medical Harriett L, 1522, r for suprvsn of Center [address] [place] [address], normal , Kartik Hernandez, third [email or web address] 120, Center , weeks gestation David Kartik 120, [place] of David MONTESINOS, tel:[phone] [place], , [place]. [id number]. tel: tel:[phone] Ginette Hernandez Encounter for Kings-2 Harriett Referring In Womens suprvsn of normal 0-201 Serina. Provider: Gladis NUNEZ, , third 8 700 Serina PO Box [email or web address] weeks Medical Harriett L, 1522, gestation of Center [address] [place] [address], Kartik Hernandez, 120, Telephone [id number], David [facility] 120, [place] David MONTESINOS, tel:[phone] [place], , [place]. [id number]. tel: tel:[phone] Ginette Hernandez Encounter for Kings-1 Harriett Referring In Womens suprvsn of normal 2-201 Serina. Provider: Gladis NUNEZ, , third 8 700 Serina PO Box trimesterEncounte Medical Harriett L, 1522, r For Center [address] [place] [address], Screening For Kartik Hernandez Streptococcus B36 120, Telephone [id number], weeks gestation David [facility] 120, [place] of David MONTESINOS, tel:[phone] [place], , [place]. [id number]. tel: tel:[phone] Ginette Hernandez Unspecified May-2 Harriett Referring In Womens placental 9-201 Serina. Provider: Health PA, disorder, third 8 700 Serina PO Box trimesterEncounte Medical Harriett L, 1522, r for supraileen of [address], normal , Kartik Hernandez, third [email or web address] 120, Center , weeks gestation Hernandez, Kartik 120, [place] of David MONTESINOS, tel:[phone] [place], , [place]. [id number]. tel: tel:[phone] Ginette Hernandez Unspecified May-1 Harriett Referring In Womens placental 6-201 Serina. Provider: Health PA, disorder, third 8 700 Serina PO Box trimesterEncounte Medical Harriett L, 1522, r for carolyn of [address], normal , Kartik Hernandez, third [email or web address] 120, Center [id number], weeks gestation Hernandez, Kartik 120, [place] of David MONTESINOS, tel:[phone] [place], , [place] [id number]. tel: tel:[phone] Ginette Hernandez Unspecified May-1 Harriett Referring In Womens Ultrasound placental 6-201 Serina. Provider: Health PA, disorder, third 8 700 Serina PO Box [email or web address] weeks Medical Harriett L, 1522, gestation of [address], Kartik Hernandez [place], 120, Center [id number], Hernandez, [facility] 120, [place] David MONTESINOS, tel:[phone] [place], , [place]. [id number]. tel: tel:[phone] Ginette Hernandez Unspecified Apr-3 Harriett Referring In Womens placental 0-201 Serina. Provider: Health PA, disorder, third 8 700 Serina PO Box trimesterEncounte Medical Harriett L, 1522, r for carolyn of [address], normal , Kartik Hernandez, third [email or web address] 120, Center [id number], weeks gestation Hernandez, Kartik 120, [place] of David MONTESINOS, tel:[phone] [place], , [place]. [id number]. tel: tel:[phone] Associates David Unspecified Apr-1 Harriett Referring In Womens placental 6-201 Serina. Provider: Gladis NUNEZ, disorder, second 8 700 Serina PO Box trimesterEncounte Medical Harriett L, 1522, r for suprvsn of [address], normal , Kartik Hernandez, second 120, Center [id number], [email or web address] [facility] [place] gestation of David MONTESINOS, tel:[phone] [place], , [place]. [id number]. tel: tel:[phone] Associates David Mild hyperemesis Apr-0 Harriett Referring In Womens gravidarumUnspeci 2-201 Serina. Provider: lita Andujar abnormal 8 700 Serina PO Box findings in Medical Harriett L, 1522, [address], for suprvsn of Kartik Hernandez, normal , 120, Center [id number], [facility] 120, [place] [id number] weeks David MONTESINOS, tel:[phone] gestation of [phone] [place], , [place]. [id number]. tel: tel:[phone] Associates David Unspecified Apr-0 Harriett Referring In Womens Ultrasound placental 2-201 Serina. Provider: Gladis NUNEZ, disorder, second 8 700 Serina PO Box [id number] weeks Medical Harriett L, 1522, gestation of [address], Kartik Hernandez [place], 120, Center [id number], [facility] 120, [place] David MONTESINOS, tel:[phone] [facility] , [place]. [id number]. tel: tel:[phone] Associates David Mild hyperemesis Mar-1 Harriett Referring In Womens gravidarumUnspeci 9-201 Serina. Provider: lita Andujar placental 8 700 Serina PO Box disorder, second Medical [facility] L, 1522, [facility] [address], r for suprvsn of Kartik Hernandez, normal , 120, Center , second Hernandez, Kartik 120, [place] [email or web address] weeks [place] David, tel:+ [phone] [place], , [place]. [id number]. tel: tel:[phone] Associates David Unspecified Mar-0 Harriett Referring In Womens placental 5-201 Serina. Provider: Gladis NUNEZ, disorder, second 8 700 Serina PO Box trimesterEncounte Medical Harriett L, 1522, r for suprvsn of Center [address] [place] [address], normal , Dr [facility] Meenu MONTESINOS, second 120, Center [id number], [email or web address] weeks Hernandez, [facility] 120, [place] gestation of [place] David, tel:+ [phone] [place], , [place]. [id number]. tel: tel:[phone] Ginette Hernandez Unspecified Feb-1 Harriett Referring In Womens placental 9-201 Serina. Provider: Gladis NUNEZ, disorder, second 8 700 Serina PO Box trimesterEncounte Medical Harriett L, 1522, r for suprvsn of Center [address] [place] [address], normal , Dr [facility] YAMEL, second 120, Center [id number], [email or web address] weeks Hernandez, [facility] 120, [place] gestation of David MONTESINOS, tel:+ [phone] [place], , [place]. [id number]. tel: tel:[phone] Ginette Hernandez Encounter for Feb-1 Harriett Referring In Womens Ultrasound suprvsn of normal 9-201 Serina. Provider: Health PA, , second 8 700 Serina PO Box [email or web address] weeks Medical Harriett L, 1522, gestation of Center [address] [place] [address], Dr [facility] [place], 120, Center [id number], Hernandez, [facility] 120, [place] YAMELDavid, tel:[phone] [place], , [place]. [id number]. tel: tel:[phone] Ginette Hernandez Mild hyperemesis Feb-0 Harriett Referring In Womens gravidarumEncount 5-201 Serina. Provider: Health PA, er for suprvsn of 8 700 Serina PO Box normal , Medical Harriett L, 1522, second Center [address] [place] [address], [email or web address] weeks Kartik Hernandez, gestation of 120, Center , Hernandez, [facility] 120, [place] David MONTESINOS, tel:[phone] [place], , [place]. [id number]. tel: tel:[phone] Associates David Mild hyperemesis Kofi-2 Harriett Referring In Womens gravidarumEncount 4-201 Serina. Provider: Health PA, er for suprvsn of 8 700 Serina PO Box normal , Medical Harriett L, 1522, second Center [address] [place] [address], [email or web address] weeks Kartik Hernandez, gestation of 120, Center , Hernandez, [facility] 120, [place] David MONTESINOS, tel:[phone] [place], , [place]. [id number]. tel: tel:[phone] Associates David Mild hyperemesis Kofi-1 Harriett Referring In Womens gravidarumUnspeci 8-201 Serina. Provider: Health MAYRA, fied abnormal 8 700 Serina PO Box findings in Medical Harriett L, 1522, urineEncounter Center [address] [place] [address], for suprvsn of Kartik Hernandez, normal , 120, Center [id number], second [facility] 120, [place] [id number] weeks David MONTESINOS, tel:+ gestation of [phone] [place], , [place]. [id number]. tel: tel:[phone] Associates David Mild hyperemesis Kofi-0 Harriett Referring In Womens gravidarumEncount 8-201 Serina. Provider: Health PA, er for suprvsn of 8 700 Serina PO Box normal , Medical Harriett L, 1522, first [id number] [place] [address], weeks gestation Kartik Hernandez, of 120, Center [id number], Hernandez, [facility] 120, [place] David MONTESINOS, tel:[phone] [place], , [place]. [id number]. tel: tel:[phone] Associates Dvaid Mild hyperemesis Kofi-0 Harriett Referring In Womens gravidarumEncount 3-201 Serina. Provider: Health PA, er for suprvsn of 8 700 Serina PO Box normal , Medical Harriett L, 1522, first [email or web address] Center 700 [place], weeks gestation Kartik Hernandez, of 120, Center [id number], David [facility] 120, David MONTESINOS, tel:[phone] [place], , [place]. [id number]. tel: tel:[phone] Associates David Mild hyperemesis Dec-2 Harriett Referring In Womens gravidarumEncount 7-201 Serina. Provider: Health PA, er for suprvsn of 7 700 Serina PO Box normal , Medical Harriett L, 1522, first [id number] Center 700 [place], weeks gestation Kartik Hernandez, of 120, Center [id number], David [facility] 120, [place] David MONTESINOS, tel:[phone] [place], , [place]. [id number]. tel: tel:[phone] Associates David Mild hyperemesis Dec-1 Harriett Referring In Womens gravidarumEncount 9-201 Serina. Provider: Health PA, er for suprvsn of 7 700 Serina PO Box normal , Medical Harriett L, 1522, first [id number] Center 700 [place], weeks gestation Kartik Hernandez, of 120, Center [id number], David [facility] 120, [place] David MONTESINOS, tel:[phone] [place], , [place]. [id number]. tel: tel:[phone] Associates David Mild hyperemesis Dec-1 Harriett Referring In Womens gravidarumEncount 3-201 Serian. Provider: Health PA, er for suprvsn of 7 700 Serina PO Box normal , Medical Harriett L, 1522, first [email or web address] Center 700 [place], weeks gestation Kartik Hernandez, of 120, Center [id number], David [facility] 120, [place] David MONTESINOS, tel:+ [phone] [place], , [place]. [id number]. tel: tel:[phone] Ginette Hernandez Mild hyperemesis Dec-0 Harriett Referring In Womens gravidarumEncntr 4-201 Serina. Provider: Health PA, screen for 7 700 Serina PO Box infections w sexl Meenu Sanabria, 152, mode of Center [address] [place] [address], transmissEnckole Hernandez, [facility], r for screening 120, Telephone , for oth [facility] 120, [place] infec/parastc David MONTESINOS, tel:[phone] diseasesEncounter [phone] [place], for suprvsn of , [place]. [id number]. normal , tel: tel:[phone] trimesterEncounte r for screening of mother8 weeks gestation of Associates David Recurrent Nov-2 Gurinder Referring In Womens 7-201 Dinah. Provider: Health MAYRA, lossHyperemesis 7 700 Serina PO Box gravidarum with Meenu Lorenzana L, 152, metabolic Center [address] [place] [address], branden Hernandez, [facility], 120, Telephone [id number], [facility] 120, [place] David MONTESINOS, tel:[phone] [place], , [place]. [id number]. tel: tel:[phone] Ginette Hernandez Recurrent Kings-3 Harriett Referring In Womens 0-201 Serina. Provider: Health MAYRA, lossEncntr for 7 700 Serina PO Box f/u exam aft Meenu Sanabria, 152, trtmt for cond Center [address] [place] [address], [address], [facility], neoplm 120, Telephone [id number], David [facility] 120, [place] David MONTESINOS, tel:[phone] [place], , [place]. [id number]. tel: tel:[phone] Ginette Hernandez Encounter for Apr-1 Harriett Referring In Womens screening for oth 9-201 Serina. Provider: Health MAYRA, infec/parastc 7 700 Serina PO Box diseases Medical Harriett L, 1522, Center [address], [facility], 120, Telephone [id number], [facility] 120, David MONTESINOS, tel:[phone] [place], , [place]. [id number]. tel: tel:[phone] Ginette Hernandez Encntr for f/u Nov- Harriett Referring In Womens exam aft trtmt 1-201 Serina. Provider: Gladis NUNEZ, for cond oth than 6 700 Serina PO Box malig neoplm Medical Harriett L, 1522, Center [address], [facility], 120, Telephone [id number], [facility] 120, David MONTESINOS, tel:[phone] [place], , [place]. [id number]. tel: tel:+ [phone] Ginette Hernandez Encounter for Kings-0 Harriett Referring In Womens screening for oth 1-201 Serina. Provider: Gladis NUNEZ, infec/parastc 6 700 Serina PO Box diseases Medical [facility] L, 1522, Center [address], [facility], 120, Telephone [id number], [facility] 120, David MONTESINOS, tel:[phone] [place], , [place]. [id number]. tel: tel:[phone] Ginette Hernandez September-2 Rudolph In Womens 1-200 Maryan. Health MAYRA, 8 700 PO Box Medical 1522, Telephone Dr Chirag, [facility] [place], 120, [id number], Hernandez, [facility], tel:[phone] , [place]. tel: [phone] Family History Family Member Diagnosis Age At [...] of Osteoporosis Immunizations Vaccine Date Status Comments Tdap completed Source: New Immunization Record Payers Payer name Insurance type Covered libertarian ID Authorization(s) [facility] [id number] [facility] [id number] Social History Type Description Quantity Date Captured Alcohol Use Details No Caffeine Use Details Unknown Tobacco Use Status Unknown Smoking Status Never smoker Vital Signs Date / Height Weight BMI Pulse Blood Temperature Respiratory Body Head BMI Time: Rate Pressure Rate Surface Circumference percentile Area 197.60 30.9 108/ lbs 5 mm[Hg] 10:48 kg/m AM eter (2) Chief Complaint And Reason For Visit Unknown Chief Complaint And Reason For Visit Reason For Referral Reason For Referral Unknown Plan Of Care Date Type Action Status Future Order: Radiology Order Ultrasound OB Follow-up ([id number]) Ordered Future Order: Radiology Order Ultrasound OB Follow-up ([id number]) Ordered Future Order: Radiology Order Complete OB Ultrasound > 14 Ordered Weeks ([id number]) Future Order: Radiology Order Complete OB Ultrasound > 14 Ordered Weeks ([id number]) Date Type Problem Goal Intervention Status Start [...]
--- OUTSIDE RECORDS SUMMARY | 2017-11-29 07:05 | External Medical Summary | Continuity of Care Document ---
:1980 Author Organization [facility] Address [address] [place], [place] [address] Phone Support Name Relationship Address Phone Khadar Rosario spouse [address] [phone] [place] [address] Allergies, Adverse Reactions, Alerts Substance Reaction Severity Status No Known Drug Allergies Unknown Active Medications Medication Instructions Dosage Effective Dates Status Comments (start - stop) 28 mg take 1 by Oral route Not Available - Active iron-800 mcg every day tablet Problems Condition Effective Dates (start - stop) Clinical Status Encntr for f/u exam aft trtmt for cond - oth than malig neoplm Unspecified placental disorder, second - trimester 25 weeks gestation of - Recurrent [...] gestation of - Active Procedures Procedure Date Ultrasnd preg uterus, flwup/repeat Results Test Name Date and Time Measure Units Reference Range Abnormal Flag Comments Unknown Advance Directives Directive Yes / No Effective Date File Name Unknown Encounters Encounter Practice Location Reason(s) Diagnoses Date Provider Care Team Description For Visit Members Ginette Hernandez Unspecified Apr-1 Harriett Referring In Womens placental 6-201 Serina. Provider: orly Andujar, second 8 700 Serina PO Box trimesterEncounte Medical Harriett L, 1522, r for suprvsn of [address], normal , Kartik Hernandez, second 120, Center [id number], [id number] weeks [facility] 120, [place] gestation of David MONTESINOS, tel:+ [facility] [place]. [id number]. tel: tel:[phone] Associates David Mild hyperemesis Apr-0 Harriett Referring In Womens gravidarumUnspeci 2-201 Serina. Provider: lita Andujar abnormal 8 700 Serina PO Box findings in Medical Harriett L, 1522, [facility] [address] [place] [address], for suprvsn of Kartik Hernandez, normal , 120, Center [id number], second [facility] 120, [place] [email or web address] weeks David MONTESINOS, tel:+ gestation of [place], , [place]. [id number]. tel: tel:[phone] Associates David Unspecified Apr-0 Harriett Referring In Womens Ultrasound placental 2-201 Serina. Provider: orly Andujar, second 8 700 Serina PO Box [email or web address] weeks Medical Harriett L, 1522, gestation of [address], Kartik Hernandez, 120, Center [id number], [facility], [place] David MONTESINOS, tel:+[phone] [facility] [place]. [id number]. tel: tel:[phone] Ginette Hernandez Mild hyperemesis Mar-1 Harriett Referring In Womens gravidarumUnspeci 9-201 Serina. Provider: Gladis NUNEZ, fied placental 8 700 Serina PO Box disorder, second Medical Harriett L, 1522, trimesterEncounte Center [address] [place] [address], r for suprvsn of , Kartik MONTESINOS, normal , 120, Center [id number], second Hernandez, [facility] 120, [place] [id number] weeks Davdi MONTESINOS, tel:[phone] gestation of [phone] [place], , [place]. [id number]. tel: tel:[phone] Ginette Hernandez Unspecified Mar-0 Harriett Referring In Womens placental 5-201 Serina. Provider: Gladis NUNEZ, disorder, second 8 700 Serina PO Box [facility] Medical Harriett L, 1522, r for suprvsn of [address], normal , Kartik Hernandez, second 120, Center [id number], [id number] weeks Hernandez, [facility] 120, [place] gestation of David MONTESINOS, tel:+ [phone] [place], , [place]. [id number]. tel: tel:[phone] Ginette Hernandez Unspecified Feb-1 Harriett Referring In Womens placental 9-201 Serina. Provider: Gladis NUNEZ, disorder, second 8 700 Serina PO Box trimesterEncounte Medical Harriett L, 1522, r for suprvsn of [address], normal , Kartik Hernandez, second 120, Center [id number], [email or web address] weeks Hernandez, Kartik 120, [place] gestation of YAMELDavid, tel:[phone] [place], , [place]. [id number]. tel: tel:[phone] Associates David Encounter for Feb-1 Harriett Referring In Womens Ultrasound suprvsn of normal 9-201 Serina. Provider: Gladis NUNEZ, , second 8 700 Serina PO Box weeks Medical Harriett L, 1522, gestation of [address], Kartik Hernandez, 120, Center [id number], David, [facility] 120, [place] David MONTESINOS, tel:[phone] [place], , [place]. [id number]. tel: tel:[phone] Associates David Mild hyperemesis Feb-0 Harriett Referring In Womens gravidarumEncount 5-201 Serina. Provider: Health PA, er for suprvsn of 8 700 Serina PO Box normal , Medical Harriett L, 1522, second Center [address] [place] [address], [id number] weeks Kartik [place], gestation of 120, Center [id number], David, [facility] 120, [place] David MONTESINOS, tel:[phone] [place], , [place]. [id number]. tel: tel:[phone] Associates David Mild hyperemesis Kofi-2 Harriett Referring In Womens gravidarumEncount 4-201 Serina. Provider: Health PA, er for suprvsn of 8 700 Serina PO Box normal , Medical Harriett L, 1522, second Center [address] [place] [address], [id number] weeks Kartik Hernandez, gestation of 120, Center [id number], David, [facility] 120, [place] David MONTESINOS, tel:[phone] [place], , [place]. [id number]. tel: tel:[phone] Associates David Mild hyperemesis Kofi-1 Harriett Referring In Womens gravidarumUnspeci 8-201 Serina. Provider: Health PA, fied abnormal 8 700 Serina PO Box findings in Medical Harriett L, 1522, urineEncounter Center [address] [place] [address], for suprvsn of Kartik Hernandez, normal , 120, Center [id number], second David [facility] 120, [place] [email or web address] weeks David MONTESINOS, tel:+[phone] gestation of [phone] [place], , [place]. [id number]. tel: tel:[phone] Associates David Mild hyperemesis Kofi-0 Harriett Referring In Womens gravidarumEncount 8-201 Serina. Provider: Health PA, er for suprvsn of 8 700 Serina PO Box normal , Medical Harriett L, 1522, first [id number] Center [address], weeks gestation Kartik Hernandez, of 120, Center [id number], Kartik Hernandez 120, [place] David MONTESINOS, tel:[phone] [place], , [place]. [id number]. tel: tel:[phone] Associates David Mild hyperemesis Kofi-0 Harriett Referring In Womens gravidarumEncount 3-201 Serina. Provider: Health PA, er for suprvsn of 8 700 Serina PO Box normal , Medical Harriett L, 1522, first [id number] Center [address] [place], weeks gestation Kartik Hernandez, of 120, Center [id number], Kartik Hernandez 120, [place] David MONTESINOS, tel:[phone] [place], , [place]. [id number]. tel: tel:[phone] Associates David Mild hyperemesis Dec-2 Harriett Referring In Womens gravidarumEncount 7-201 Serina. Provider: Health PA, er for suprvsn of 7 700 Serina PO Box normal , Medical Harriett L, 1522, first [id number] Center [address] [place], weeks gestation Kartik Hernandez, of 120, Center [id number], David [facility] 120, [place] David MONTESINOS, tel:[phone] [place], , [place]. [id number]. tel: tel:[phone] Associates David Mild hyperemesis Dec-1 Harriett Referring In Womens gravidarumEncount 9-201 Serina. Provider: Health PA, er for suprvsn of 7 700 Serina PO Box normal , Medical Harriett L, 1522, first [id number] Center [address] [place], weeks gestation Kartik Hernandez, of 120, Center [id number], David Kartik 120, [place] David MONTESINOS, tel:[phone] [place], , [place]. [id number]. tel: tel:[phone] Associates David Mild hyperemesis Dec-1 Harriett Referring In Womens gravidarumEncount 3-201 Serina. Provider: Health MAYRA, er for suprvsn of 7 700 Serina PO Box normal , Medical Harriett L, 1522, first [id number] [place] [address], weeks gestation , [facility], of 120, Center [id number], David [facility] 120, [place] David MONTESINOS, tel:+ [phone] [place], , [place]. [id number]. tel: tel:[phone] Associates David Mild hyperemesis Dec-0 Harriett Referring In Womens gravidarumEncntr 4-201 Serina. Provider: Gladis NUNEZ, screen for 7 700 Serina PO Box infections w sexl Medical Harriett Sanabria, 1522, mode of Center [address] [place] [address], transmissEncounte , [facility], r for screening 120, [place] [id number], for oth David [facility] 120, [place] infec/parastc David MONTESINOS, tel: diseasesEncounter [phone] [place], for suprvsn of , [place]. [id number]. normal , tel: tel:[phone] trimesterEncounte r for screening of mother8 weeks gestation of Associates David Recurrent Nov-2 Gurinder Referring In Womens 7-201 Dinah. Provider: Gladis NUNEZ, lossHyperemesis 7 700 Serina PO Box gravidarum with Medical Harriett L, 1522, metabolic Center [address] [place] [address], disturbance , [facility], 120, Center [id number], David [facility] 120, [place] David MONTESINOS, tel:+ [phone] [place], , [place]. [id number]. tel: tel:[phone] Associates David Recurrent Kings-3 Harriett Referring In Womens 0-201 Serina. Provider: Gladis UNNEZ, lossEncntr for 7 700 Serina PO Box f/u exam aft Medical Harriett L, 1522, trtmt for cond Center [address] [place], otleonidas than angelina Hernandez, [facility], [facility] 120, [place] [id number], David, [facility] 120, [place] David MONTESINOS, tel:[phone] [place], , [place]. [id number]. tel: tel:[phone] Ginette Hernandez Encounter for Apr-1 Harriett Referring In Womens screening for oth 9-201 Serina. Provider: Health MAYRA, infec/parastc 7 700 Serina PO Box diseases Medical Harriett L, 1522, Center [address], [facility], 120, [place] [id number], David, [facility] 120, [place] David MONTESINOS, tel:[phone] [place], , [place]. [id number]. tel: tel:[phone] Ginette Hernandez Encntr for f/u Nov- Harriett Referring In Womens exam aft trtmt 1-201 Serina. Provider: Gladis NUNEZ, for cond oth than 6 700 Serina PO Box angelina charlesFormerly [facility] Medical Centerkins L, 1522, Center [address], [facility], 120, [place] [id number], David, [facility] 120, [place] David MONTESINOS, tel:[phone] [place], , [place]. [id number]. tel: tel:[phone] Ginette Hernandez Encounter for Kings-0 Harriett Referring In Womens screening for oth 1-201 Serina. Provider: Health MAYRA, infec/parastc 6 700 Serina PO Box diseases Medical Harriett L, 1522, Center [address], [facility], 120, [place] [id number], [facility] 120, [place] David MONTESINOS, tel:[phone] [place], , [place]. [id number]. tel: tel:[phone] Ginette Hernandez September-2 Ronni In Womens 1-200 Maryan. [employer] [place], 8 700 [facility] 1522, [place] [address] Chirag, [facility] [place], 120, [id number], [facility] [place], tel:[phone] , . tel:[phone] Family History Family Member Diagnosis Age At [...] Unknown Payers Payer name Insurance type Covered libertarian ID Authorization(s) WESTON MONTESINOS [id number] Social History Type Description Quantity Date Captured Unknown Vital Signs Date / Height Weight BMI Pulse Blood Temperature Respiratory Body Head BMI Time: Rate Pressure Rate Surface Circumference percentile Area Unknown Chief Complaint And Reason For Visit Unknown Chief Complaint And Reason For Visit Reason For Referral Reason For Referral Unknown Plan Of Care Date Type Action Status Appointment Kerry Rsoario BOOKED Appointment Kerry Rosario BOOKED Appointment Kerry Rosario BOOKED Future Order: Radiology Order Ultrasound OB Follow-up ([id number]) Ordered Future Order: Radiology Order Complete OB Ultrasound > 14 Ordered Weeks ([id number]) Date Type Problem Goal Intervention Status Start [...]
--- OUTSIDE RECORDS SUMMARY | 2017-11-29 07:05 | External Medical Summary | Continuity of Care Document ---
:1980 Author Organization [facility] Address [address] [place], [place] [id number] Phone Support Name Relationship Address Phone Khadar Rosario spouse [address] [phone] [place] [address] Allergies, Adverse Reactions, Alerts Substance Reaction Severity [...] Active iron-800 mcg tablet route every day Zofran ODT 4 mg take 1 by Oral Not Available - No Longer disintegrating route every 6 Active tablet hours as needed for nausea Diclegis 10 mg-10 mg take 1 tablet [...] first trimester 10 weeks gestation of - Encounter for screening [...] For Visit Members [facility] David Mild hyperemesis Apr- Harriett Referring In Womens gravidarumEncounter 3-201 Serina. Provider: Gladis NUNEZ, for suprvsn of 7 700 Serina PO Box normal , Medical Harriett L, 1522, first [id number] Center [address] [place], weeks gestation of Kartik Hernandez, 120, [place] [id number], David [facility] 120, [place] David MONTESINOS, tel:+ [phone] [place] , [place]. [id number]. tel: tel:[phone] Associates David Mild hyperemesis Apr-0 Harriett Referring In Womens gravidarumEncntr 4-201 Serina. Provider: Gladis NUNEZ, screen for 7 700 Serina PO Box infections w sexl Medical Harriett L, 1522, mode of Center [address] [place], transmissEncounter Kartik Hernandez, for screening for 120, [place] [id number], oth infec/parastc David [facility] 120, [place] [facility]Enc[facility] David MONTESINOS, tel:2 for suprvsn of [id number] [place] normal , , [place]. [id number]. first tel: tel:[phone] trimesterEncounter [phone] for screening of mother8 weeks gestation of Office/outpa Associates David early OB Recurrent Mar-2 Gurinder Referring tient In Womens (chief lossHyperemesis 7-201 Dinah. Provider: visit,est, Health MAYRA, complaint) gravidarum with 7 700 Serina mod PO Box metabolic Medical Harriett L, 1522, disturbance Center [facility] Dr Chirag, [facility], 120, [place] [id number], [facility] 120, [facility], tel:[phone] [place], , [place]. [id number]. tel: tel:[phone] Ginette Hernandez Nov- Harriett In Womens 6-201 Serina. Gladis NUNEZ, 7 700 PO Box Medical 1522, Center Dr Chirag, [facility], 120, [id number], Hernandez, [place], tel:[phone] , [place]. tel: [phone] Ginette Hernandez Recurrent Kings-3 Harriett Referring In Womens lossEncntr for f/u 0-201 Serina. Provider: Gladis NUNEZ, exam aft trtmt for 7 700 Serina PO Box cond oth than malig Medical Harriett L, 1522, neoplm Center [facility] Dr Chirag, [facility], 120, [place] [id number], David [facility] 120, David MONTESINOS, tel:[phone] [place], , [place]. [id number]. tel: tel:[phone] Hernandez Encounter for Aug- Harriett Referring In Womens screening for oth 9-201 Serina. Provider: Gladis NUNEZ, infec/parastc 7 700 Serina PO Box diseases Medical Harriett L, 1522, Center [address], [facility], 120, [place] [id number], [facility] 120, David MONTESINOS, tel:[phone] [place], , [place]. [id number]. tel: tel:[phone] Hernandez Encntr for f/u exam Harriett Referring In Womens aft trtmt for cond 1-201 Serina. Provider: Gladis NUNEZ, zane alfaro 6 700 Serina PO Box neoplm Medical Harriett L, 1522, Center [address] Dr [address], [facility], 120, [place] [id number], David, [facility] 120, YAMEL, David, tel:[phone] [place], , . [id number]. tel: tel: [phone] Associates David Encounter for Kings-0 Harriett Referring In Womens screening for oth 1-201 Serina. Provider: Gladis NUNEZ, infec/parastc 6 700 Serina PO Box diseases Medical Harriett L, 1522, Center [address], [facility], 120, [place] [id number], [facility] 120, YAMEL, David, tel:[phone] [place], [phone] , . [id number]. tel: tel:+ [phone] Ginette Hernandez September-2 Rudolph In Womens 1-200 Maryan. Gladis NUNEZ, 8 700 PO Box Medical 15[address], [place] [address] Chirag, [facility], 120, [id number], [place], [facility], tel:[phone] , . tel: [phone] Family History Family Member Diagnosis Age At [...] type Covered republican ID Authorization(s) TRACEY ALEMAN [id number] Social History Type Description Quantity Date Captured Alcohol Use Details No Caffeine Use Details Unknown Tobacco Use Status Never smoked tobacco Smoking Status Never smoker Vital Signs Date / Height Weight BMI Pulse Blood Temperature Respiratory Body Head BMI Time: Rate Pressure Rate Surface Circumference percentile Area 0.00 in 167.60 27.0 74 123/79 2017 lbs 5 /min mm[Hg] 2:01 kg/m PM [...] History Of Present Illness early OB LMP 10/3. 7 wks 6 days with EDC of 12/04/17. Positive preg test 04/02/17. Hx of multiple SAB's and bad hyperemesis with pregnancies. Vomiting 2 x/day. On Diclegis ( 2 at hs) which is helping [...]
--- OUTSIDE RECORDS SUMMARY | 2017-11-29 07:06 | External Medical Summary | Continuity of Care Document ---
:1980 Author Organization [facility] Address [address] [place], [place] [id number] Phone Support Name Relationship Address Phone Khadar Rosario spouse [address] [phone] [place] [address] Allergies, Adverse Reactions, Alerts Substance Reaction Severity [...] oth than malig neoplm Unspecified placental disorder, third - trimester Encounter for suprvsn of normal - , third trimester 29 weeks gestation of - Recurrent loss Hyperemesis [...] - trimester 32 weeks gestation of - Encounter for screening [...] Care Team Description For Visit Members Ginette Johnified Harriett Referring In Womens placental 6-201 Serina. Provider: orly Andujar, third 8 700 Serina PO Box trimesterEncounte Meenu Lorenzana L, 1522, r for suprvsn of Center [address] [place] [address], normal , Kartik Hernandez, third [id number] 120, [place] [id number], weeks gestation David [facility] 120, [place] of David MONTESINOS, tel:[phone] [place], [phone] , [place]. [id number]. tel: tel:[phone] Ginette Hernandez Unspecified September-1 Harriett Referring In Womens Ultrasound placental 6-201 Serina. Provider: orly Andujar, third 8 700 Serina PO Box [email or web address] weeks Medical Harriett L, 1522, gestation of Center [address] [place] [address], Kartik Hernandez [place], 120, [place] [id number], David, [facility] 120, [place] David MONTESINOS, tel:[phone] [place], [address] , [place]. [id number]. tel: tel:[phone] Ginette Hernandez Unspecified Aug-3 Harriett Referring In Womens placental 0-201 Serina. Provider: Gladis NUNEZ, disorder, third 8 700 Serina PO Box trimesterEncounte Medical [facility] L, 1522, r for suprvsn of [address], normal , Kartik Hernandez, third [email or web address] 120, Center , weeks gestation Hernandez, Kartik 120, [place] of David MONTESINOS, tel:[phone] CT, , [place]. [id number]. tel: tel:[phone] Associates David Unspecified Apr-1 Harriett Referring In Womens placental 6-201 Serina. Provider: Gladis NUNEZ, disorder, second 8 700 Serina PO Box trimesterEncfresno [facility] hospit[facility] L, 1522, r for supraileen of [address], normal , Kartik Hernandez, second 120, Center [id number], [id number] weeks Hernandez, Kartik 120, [place] gestation of David MONTESINOS, tel:+ [phone] [place], , [place]. [id number]. tel: tel:[phone] Associates Dvaid Mild hyperemesis Apr-0 Harriett Referring In Womens gravidarumUnspeci 2-201 Serina. Provider: Gladis NUNEZ fied abnormal 8 700 Serina PO Box findings in Medical [facility] L, 1522, urineEncounter Center [address] [place] [address], for suprvsn of Kartik Hernandez, normal , 120, Center , second Hernandez, Kartik 120, US [id number] weeks David MONTESINOS, tel:+ gestation of [phone] [place], , [place]. [id number]. tel: tel:[phone] Associates David Unspecified Apr-0 Harriett Referring In Womens Ultrasound placental 2-201 Serina. Provider: Gladis NUNEZ, disorder, second 8 700 Serina PO Box [id number] weeks Medical Harriett L, 1522, gestation of [address], Kartik Hernandez [place], 120, Center [id number], Hernandez, Kartik 120, [place] David MONTESINOS, tel:[phone] [place], [phone] , [place]. [id number]. tel: tel:[phone] Ginette Hernandez Mild hyperemesis Mar-1 Harriett Referring In Womens gravidarumUnspeci 9-201 Serina. Provider: Gladis NUNEZ, fied placental 8 700 Serina PO Box disorder, second Medical Harriett L, 1522, trimesterEncounte Center [address] [place] [address], r for suprvsn of Kartik Hernandez, normal , 120, Center [id number], second Hernandez, Kartik 120, US [id number] weeks David MONTESINOS, tel:[phone] [place], , [place]. [id number]. tel: tel:[phone] Ginette Hernandez Unspecified Mar-0 Harriett Referring In Womens placental 5-201 Serina. Provider: Gladis NUNEZ, disorder, second 8 700 Serina PO Box [facility]Encfresno [facility]ale Medical Harriett L, 1522, r for suprvsn of [address], normal , Kartik Hernandez, second 120, Center [id number], [id number] weeks Hernandez, Kartik 120, [place] gestation of David MONTESINOS, tel:+ [phone] CT, , [place]. [id number]. tel: tel:[phone] Ginette Hernandez Unspecified Feb-1 Harriett Referring In Womens placental 9-201 Serina. Provider: Gladis NUNEZ, disorder, second 8 700 Serina PO Box trimesterEncounte Medical Harriett L, 1522, r for suprvsn of [address], normal , Kartik Hernandez, second 120, Center [id number], [id number] weeks Hernandez, Kartik 120, [place] gestation of YAMELDavid, tel:[phone], , [place]. [id number]. tel: tel:[phone] Ginette Hernandez Encounter for Feb-1 Harriett Referring In Womens Ultrasound suprvsn of normal 9-201 Serina. Provider: Gladis NUNEZ, , second 8 700 Serina PO Box [email or web address] weeks Medical Harriett L, 1522, gestation of [address], Kartik Hernandez, 120, Center [id number], David [facility] 120, US David MONTESINOS, tel:[phone] CT, , [place]. [id number]. tel: tel:[phone] Associates David Mild hyperemesis Feb-0 Harriett Referring In Womens gravidarumEncount 5-201 Serina. Provider: Health PA, er for suprvsn of 8 700 Serina PO Box normal , Medical Harriett L, 1522, second Center [address] [place] [address], [email or web address] weeks Kartik Hernandez [place], gestation of 120, Center [id number], David, [facility] 120, US David MONTESINOS, tel:[phone] CT, , [place]. [id number]. tel: tel:[phone] Associates David Mild hyperemesis Kofi-2 Harriett Referring In Womens gravidarumEncount 4-201 Serina. Provider: Health PA, er for suprvsn of 8 700 Serina PO Box normal , Medical Harriett L, 1522, second Center [address] [place] [address], [id number] weeks Kartik Hernandez, gestation of 120, Center [id number], David [facility] 120, US David MONTESINOS, tel:+ [phone] [place], , [place]. [id number]. tel: tel:[phone] Associates David Mild hyperemesis Kofi-1 Harriett Referring In Womens gravidarumUnspeci 8-201 Serina. Provider: Health PA, fied abnormal 8 700 Serina PO Box findings in Medical Harriett L, 1522, urineEncounter Center [address] [place] [address], for suprvsn of Kartik Hernandez, normal , 120, Center [id number], second David [facility] 120, US [email or web address] weeks David MONTESINOS, tel:+[phone] [place], , [place]. [id number]. tel: tel:[phone] Associates David Mild hyperemesis Kofi-0 Harriett Referring In Womens gravidarumEncount 8-201 Serina. Provider: Health PA, er for suprvsn of 8 700 Serina PO Box normal , Medical Harriett L, 1522, first [id number] Center 700 [place], weeks gestation Kartik Hernandez, of 120, Center [id number], Kartik Hernandez 120, US David MONTESINOS, tel:[phone] [place], , [place]. [id number]. tel: tel:[phone] Associates David Mild hyperemesis Kofi-0 Harriett Referring In Womens gravidarumEncount 3-201 Serina. Provider: Health PA, er for suprvsn of 8 700 Serina PO Box normal , Medical Harriett L, 1522, first [id number] Center 700 [place], weeks gestation Kartik Hernandez, of 120, Center [id number], Kartik Hernandez 120, US David MONTESINOS, tel:[phone] [place], , [place]. [id number]. tel: tel:[phone] Associates David Mild hyperemesis Dec-2 Harriett Referring In Womens gravidarumEncount 7-201 Serina. Provider: Health PA, er for suprvsn of 7 700 Serina PO Box normal , Medical Harriett L, 1522, first Center 700 [place], weeks gestation Kartik Hernandez, of 120, Center [id number], David [facility] 120, US David MONTESINOS, tel:[phone] [place], , [place]. [id number]. tel: tel:[phone] Associates David Mild hyperemesis Dec-1 Harriett Referring In Womens gravidarumEncount 9-201 Serina. Provider: Health PA, er for suprvsn of 7 700 Serina PO Box normal , Medical Harriett L, 1522, first [email or web address] Center 700 [place], weeks gestation Kartik Hernandez, of 120, Center [id number], David Kartik 120, US David MONTESINOS, tel:+ [phone] CT, , [place]. [id number]. tel: tel: [phone] Associates David Mild hyperemesis Dec-1 Harriett Referring In Womens gravidarumEncount 3-201 Serina. Provider: Health MAYRA, er for suprvsn of 7 700 Serina PO Box normal , Medical Harriett L, 1522, first [id number] Center [address] [place] [address], weeks gestation , [facility], of 120, Center [id number], David [facility] 120, US David MONTESINOS, tel:[phone] CT, , [place]. [id number]. tel: tel:[phone] Associates David Mild hyperemesis Dec-0 Harriett Referring In Womens gravidarumEncntr 4-201 Serina. Provider: Gladis NUNEZ, screen for 7 700 Serina PO Box infections w sexl Medical Harriett L, 1522, mode of Center [address] [place] [address], transmissEncounte , [facility], r for screening 120, [place] [id number], for oth David [facility] 120, US infec/parastc David MONTESINOS, tel: diseasesEncounter CT, for suprvsn of , [place]. [id number]. normal , tel: tel: first [phone] trimesterEncounte r for screening of mother8 weeks gestation of Associates David Recurrent Nov-2 Gurinder Referring In Womens 7-201 Dinah. Provider: Gladis NUNEZ, lossHyperemesis 7 700 Serina PO Box gravidarum with Medical Harriett L, 1522, metabolic Center [address] [place] [address], disturbance , [facility], 120, Center [id number], David [facility] 120, US David MONTESINOS, tel:[phone] CT, , [place]. [id number]. tel: tel:[phone] Associates David Recurrent Kings-3 Harriett Referring In Womens 0-201 Serina. Provider: Gladis NUNEZ, lossEncntr for 7 700 Serina PO Box f/u exam aft Medical [facility] L, 1522, trtmt for cond Center 700 [place], otleonidas than angelina Hernandez, [facility], [facility] 120, Center [id number], David, [facility] 120, US David MONTESINOS, tel:[phone], , [place]. [id number]. tel: tel:[phone] 0949988Lamont Hernandez Encounter for Apr-1 Harriett Referring In Womens screening for oth 9-201 Serina. Provider: Health PA, infec/parastc 7 700 Serina PO Box diseases Medical [facility] Daniele, 1522, Center [address], [facility], 120, [place] [id number], David, [facility] 120, US David MONTESINOS, tel:[phone], , [place]. [id number]. tel: tel:[phone] Hernandez Encntr for f/u Nov- Harriett Referring In Womens exam aft trtmt 1-201 Serina. Provider: Health MAYRA, for cond oth than 6 700 Serina PO Box [facility]Edge[facility] Hospit[facility] L, 1522, Center [address], [facility], 120, [place] [id number], David, [facility] 120, US David MONTESINOS, tel:[phone], , [place]. [id number]. tel: tel:[phone] Ginette Hernandez Encounter for Kings-0 Harriett Referring In Womens screening for oth 1-201 Serina. Provider: Health MAYRA, infec/parastc 6 700 Serina PO Box diseases Medical Harriett L, 1522, Center [address] Chirag, [facility], 120, [place] [id number], David, [facility] 120, US David MONTESINOS, tel:[phone], , [place]. [id number]. tel: tel:[phone] Hernandez May-2 Rudolph In Womens 1-200 Maryan. Health PA, 8 700 [facility] 1522, [address] [address] Chirag [facility], 120, [id number], [facility] [place], [phone] [address] , . tel: [phone] Family History Family Member Diagnosis Age At [...] name Insurance type Covered democrat ID Authorization(s) WESTON MONTESINOS [id number] Social History Type Description Quantity Date Captured [...] Type Action Status Appointment Kerry Rosario BOOKED Future Order: Radiology Order Ultrasound OB Follow-up (20317) Ordered Future Order: Radiology Order Ultrasound OB Follow-up ([id number]) Ordered Future Order: Radiology Order Complete OB Ultrasound > 14 Ordered Weeks ([id number]) Future Order: Radiology Order Complete OB Ultrasound > 14 Ordered Weeks ([id number]) Date Type Problem Goal Intervention Status Start [...]
--- OUTSIDE RECORDS SUMMARY | 2017-11-29 07:06 | External Medical Summary | Continuity of Care Document ---
:1980 Author Organization [facility] Address [address] [place], [place] [id number] Phone Support Name Relationship Address Phone Khadar Rosario spouse [address] [phone] [place] [address] Allergies, Adverse Reactions, Alerts Substance Reaction Severity Status No Known Drug Allergies Unknown Active Medications Medication Instructions Dosage Effective Dates (start - stop) Status Comments No Drug Therapy Prescribed Problems Condition Effective Dates (start - stop) Clinical Status Encntr for f/u exam aft trtmt for cond - oth than malig neoplm Recurrent loss Encntr for f/u exam aft [...] Team Description For Visit Members Ginette Hernandez Harriett In Womens -2016 Serina. Russ Andujar [address], YAMEL Hennessy, Jennifer Hernandez [id number], Kartik 120, [place] David, tel:[phone] [place], [phone], [place]. tel:[phone] Ginette Baez Harriett Referring In Women -2016 Serina. Provider: Harjit Andujar Serina [address], for f/u exam Chirag Sepulved[place], aft trtmt Center Russ Hernandez [facility] [id number], for cond oth Kartik 120, Center Dr [place] linnea Hernandez, Kartik 120, tel:[phone], [id number], [id number]. [place]. tel: tel:[phone] Ginette Hernandez Encounter Harriett Referring In Womens for -2016 Serina. Provider: Gladis NUNEZ, screening 700 Serina [address], for ot Medical Harriett L, [place], [place], infec/parast Center Russ Hernandez Medical [id number], c diseases Kartik 120, Center Dr [place] Hernandez, Kartik 120, tel:+21 [place], [id number], [id number]. [place]. tel: tel:[phone] Ginette Hernandez Encntr for Harriett Referring In Womens f/u exam aft -2015 Serina. Provider: Gladis NUNEZ, trtmt for 700 Serina [address], cond ot Medical [facility], [place], [place], [facility] Russ Hernandez Medical [id number], heidi Kartik 120, Center Dr [place] Hernandez, Kartik 120, tel:+21 [place], [id number], [id number]. [place]. tel: tel:[phone] Ginette Hernandez Encounter Harriett Referring In Womens for -2015 Serina. Provider: Gladis NUNEZ, screening 700 Serina [address], for [facility] Medical Harriett L, [place], infec/parast Center Russ Hernandez Medical [id number], c diseases Kartik 120, Center Dr [place] Hernandez, Kartik 120, tel:+21 [place], [phone], [id number]. [place]. tel: tel:[phone] Ginette Hernandez Rudolph In Womens -2007 Maryan. Gladis NUNEZ, 700 [address], Medical [place], Center Dr [id number], Kartik 120, David, tel:[phone] [place], [address] [id number], . tel:[phone] Family History Family Member Diagnosis Age At [...] Insurance type Covered green party ID Authorization(s) WESTON YAMEL BL [id number] Social History Type Description Quantity Date Captured [...] Plan Of Care Date Type Action Status Unknown. Date Type Problem Goal Intervention Status Start Date Unknown. History Of Present Illness Encounter Date Complaint History Of Present Illness This patient has no known history of present illness Functional Status Encounter Date Functional Assessment Cognitive Assessment Unknown Medications Administered Medication Instructions Dosage Effective Dates (start - stop) Status Comments No Drug Therapy Prescribed Instructions Date Instruction Additional Information Giving encouragement [...]
--- OUTSIDE RECORDS SUMMARY | 2017-11-29 07:06 | External Medical Summary | Continuity of Care Document ---
:1982 Author Organization [facility] [employer] [facility] Address [address] [place], [place] [address] Phone Support Name Relationship Address Phone Khadar Rosario spouse [address] [phone] [place] [address] Allergies, Adverse Reactions, Alerts Substance Reaction Severity [...] first trimester 12 weeks gestation of - Recurrent loss Hyperemesis [...] Box normal , Meenu Sanabria, 1522, first [id number] [place] [address], weeks gestation of Kartik Hernandez, 120, [place] [id number], David [facility] 120, David MONTESINOS, tel:[phone] [place], [facility] , . [id number]. tel: tel:[phone] Associates David Mild hyperemesis Harriett Referring In Womens gravidarumEncounter 3-201 Serina. Provider: Gladis NUNEZ, for suprvsn of 8 700 Serina PO Box normal , Meenu Sanabria, 1522, first [id number] Center 700 [place], weeks gestation of Kartik Hernandez [place], 120, [place] [id number] Alcantar [facility] 120, [place] David MONTESINOS, tel:[phone] [place], , [place]. [id number]. tel: tel:[phone] Associates David Mild hyperemesis Dec-2 Harriett Referring In Womens gravidarumEncounter 7-201 Serina. Provider: Health PA, for suprvsn of 7 700 Serina PO Box normal , Medical Harriett L, 1522, first Center [address] [place] [address], weeks gestation of Kartik Hernandez, 120, Center [id number], David [facility] 120, US David MONTESINOS, tel:[phone] [place], , [place]. [id number]. tel: tel:[phone] Associates David Mild hyperemesis Dec-1 Harriett Referring In Womens gravidarumEncounter 9-201 Serina. Provider: Health PA, for suprvsn of 7 700 Serina PO Box normal , Medical Harriett L, 1522, first [id number] [place] [address], weeks gestation of Kartik Hernandez, 120, Center [id number], David [facility] 120, US David MONTESINOS, tel:[phone] [place], , [place]. [id number]. tel: tel:[phone] Associates David Mild hyperemesis Dec-1 Harriett Referring In Womens gravidarumEncounter 3-201 Serina. Provider: Health PA, for suprvsn of 7 700 Serina PO Box normal , Medical Harriett L, 1522, first [id number] [place] [address], weeks gestation of Kartik Hernandez, 120, Center [id number], David [facility] 120, US David MONTESINOS, tel:[phone] [place], , [place]. [id number]. tel: tel:[phone] Associates David Mild hyperemesis Dec-0 Harriett Referring In Womens gravidarumEncntr 4-201 Serina. Provider: Health PA, screen for 7 700 Serina PO Box infections w sexl Medical Harriett L, 1522, mode of Center [facility] Chirag, yennyEncvan Hernandez, [facility], for screening for 120, [place] [id number], oth infec/parastc David [facility] 120, diseasesEncasc[facility] David MONTESINOS, tel:2 for suprvsn of [phone] [place], normal , , [place]. [id number]. first tel: [facility] [phone] for screening of mother8 weeks gestation of Associates David Recurrent Nov-2 Gurinder Referring In Womens lossHyperemesis 7-201 Dinah. Provider: Gladis NUNEZ, gravidarum with 7 700 Serina PO Box metabolic Medical Harriett L, 1522, disturbance Center [facility] Dr Chirag, [facility], 120, [place] [id number], David [facility] 120, David MONTESINOS, tel:[phone] [place] , [place]. [id number]. tel: tel: [phone] Associates David Nov- Harriett In Womens 6-201 Serina. Gladis NUNEZ, 7 700 PO Box Medical 1522, [place] Dr Chirag, [facility], 120, [id number], David, YAMEL, tel: [phone] , [place]. tel: [phone] Associates David Recurrent Kings-3 Harriett Referring In Womens lossEncntr for f/u 0-201 Serina. Provider: Gladis NUNEZ, exam aft trtmt for 7 700 Serina PO Box cond oth than malig Medical Harriett L, 1522, neoplm Center [facility] Dr Chirag, [facility], 120, [place] [id number], David [facility] 120, David MONTESINOS, tel: [phone] [place], , [place]. [id number]. tel: tel:[phone] Associates David Encounter for Aug- Harriett Referring In Womens screening for oth 9-201 Serina. Provider: Gladis NUNEZ, infec/parastc 7 700 Serina PO Box diseases Medical Harriett L, 1522, Center [address], [facility], 120, [place] [id number], David, [facility] 120, David MONTESINOS, tel:[phone] [place], , [place]. [id number]. tel: tel:[phone] Ginette Hernandez Encntr for f/u exam Nov- Harriett Referring In Womens aft trtmt for cond 1-201 Serina. Provider: Gladis NUNEZ, rosa than [facility] 6 700 Serina PO Box neoplm Medical Harriett L, 1522, Center [facility] Dr Chirag, [facility], 120, [place] [id number], [facility], David MONTESINOS, tel:[phone] [place], , [place]. [id number]. tel: tel:[phone] Ginette Hernandez Encounter for Kings-0 Harriett Referring In Womens screening for oth 1-201 Serina. Provider: Gladis NUNEZ, infec/parastc 6 700 Serina PO Box diseases Medical Harriett L, 1522, Center [address], [facility], 120, [place] [id number], [facility] 120, David MONTES[place]OS, tel:[phone] [place], , [place]. [id number]. tel: tel:[phone] Ginette Hernandez September-2 Rudolph In Womens 1-200 Maryan. Health MAYRA, 8 700 PO Box Medical 1522, [place] Dr Chirag, [facility] [place], 120, [id number], David, YAMEL, tel:[phone] , [place]. tel: [phone] Family History Family Member Diagnosis Age At [...] type Covered republican ID Authorization(s) TRACEY ALEMAN [id number] Social History Type Description Quantity Date Captured [...]
--- OUTSIDE RECORDS SUMMARY | 2017-11-29 07:06 | External Medical Summary | Continuity of Care Document ---
:1980 Author Organization [facility] Address [address] [place], [place] [address] Phone Support Name Relationship Address Phone Khadar Rosario spouse [address] [phone] [place] [address] Allergies, Adverse Reactions, Alerts Substance Reaction Severity [...] Team Description For Visit Members Ginette Hernandez early OB Recurrent Nov-2 Gurinder Referring In Womens (chief 7-201 Dinah. Provider: Gladis NUNEZ, complaint) lossHyperemesis 7 700 Serina [address], gravidarum with Meenu Sanabria [place], metabolic Center 700 [id number], branden Hernandez, [facility] 120, [place] tel:+[phone] David [facility] 120, [address] [place], [place], [id number] [place], , [place]. [id number]. tel: tel:[phone] Ginette Hernandez Nov-1 Harriett In Womens 6-201 Serina. Gladis NUNEZ, 7 700 [address], Medical [place], [place] , , [facility] 120, tel:+[phone] David, [address], [id number] , [place]. tel: [phone] Ginette Hernandez Recurrent Kings-3 Harriett Referring In Womens 0-201 Serina. Provider: Charles Andujarntr for 7 700 Serina [address], f/u exam aft [place]ia [place], trtmt for cond Center 700 , zane [address], [facility] neopl 120, [place] tel:+[phone] David [facility] 120, [address] [place], [place], [id number] [place], , [place]. [id number]. tel: tel:[phone] Ginette Hernandez Encounter for Apr-1 Harriett Referring In Womens screening for 9-201 Serina. Provider: Gladis NUNEZ, ot 7 700 Serina [address], infec/parastc [place], diseases Center 700 [id number], Dr [facility] 120, [place] tel:+[phone] David [facility] 120, [address] David [place], [id number] [place], , [place]. [id number]. tel: tel:[phone] Associates David Encntr for f/u Nov- Harriett Referring In Womens exam aft trtmt 1-201 Serina. Provider: Health MAYRA, for cond oth 6 700 Serina [address], than [facility] Medical Harriett Sanabria [place], neoplm Center 700 [id number], , [facility] 120, [place] tel:[phone] [facility], [address] [place], [place], [id number] [place], , [place]. [id number]. tel: tel:[phone] Ginette Hernandez Encounter for Kings-0 Harriett Referring In Womens screening for -201 Serina. Provider: Gladis NUNEZ, oth 6 700 Serina [address], infec/parastc Medical Harriett Sanabria [place], diseases Center 700 [id number], , [facility] 120, [place] tel:+[phone] [place] [address], [address] [place], [place], [id number] [place], , [place]. [id number]. tel: tel:[phone] Ginette Hernandez September- Ronni In Womens 1-200 Maryan[facility], 8 700 [address], [place], [place], [place] [id number], , [facility] 120, tel:[phone] [place], [address] [place], [id number] , [place]. tel: [phone] Family History Family Member Diagnosis Age At [...] Unknown Payers Payer name Insurance type Covered alliance party ID Authorization(s) TRACEY ALEMAN [id number] Social History Type Description Quantity Date Captured [...]
--- OUTSIDE RECORDS SUMMARY | 2017-11-29 07:06 | External Medical Summary | Continuity of Care Document ---
:1980 Author Organization [facility] [place] [facility] Address [address] [place], [place] [id number] Phone Support Name Relationship Address Phone Khadar Rosario spouse [address] [phone] [place] [address] Allergies, Adverse Reactions, Alerts Substance Reaction Severity [...] neoplm Unspecified placental disorder, second - trimester Encounter for suprvsn of normal - , second trimester 21 weeks gestation of - Recurrent loss Hyperemesis [...] 19 weeks gestation of - Encounter for screening [...] Care Team Description For Visit Members Associates Hernandez Mild hyperemesis Harriett Referring In Womens gravidarumUnspeci 9-201 Serina. Provider: Health MAYRA, fied placental 8 700 Serina PO Box disorder, second Medical Harriett L, 1522, trimesterEncounte Center [address] [place] [address], r for suprvsn of Kartik Hernandez, normal , 120, Center , second Hernandez, Kartik 120, [place] [id number] weeks David MONTESINOS, tel:+[phone] gestation of [place], , [place]. [id number]. tel: tel:[phone] Ginette Hernandez Unspecified Mar-0 Harriett Referring In Womens placental 5-201 Serina. Provider: Gladis NUNEZ, disorder, second 8 700 Serina PO Box [facility] Harriett L, 1522, r for suprvsn of [address], normal , Kartik Hernandez, second 120, Center [id number], [id number] weeks Hernandez, [facility] 120, [place] gestation of David MONTESINOS, tel:[phone] [place], , [place]. [id number]. tel: tel:[phone] Ginette Hernandez Unspecified Feb-1 Harriett Referring In Womens placental 9-201 Serina. Provider: Gladis NUNEZ, disorder, second 8 700 Serina PO Box [facility] Medical Harriett L, 1522, r for suprvsn of [address], normal , Kartik Hrenandez, second 120, Center [id number], [id number] weeks Hernandez, Kartik 120, [place] gestation of David MONTESINOS, tel:[phone] [place], , [place]. [id number]. tel: tel:[phone] Ginette Hernandez Encounter for Feb-1 Harriett Referring In Womens Ultrasound suprvsn of normal 9-201 Serina. Provider: Gladis NUNEZ, , second 8 700 Serina PO Box [id number] weeks Medical Harriett L, 1522, gestation of [address], Kartik Hernandez [place], 120, Center [id number], Hernandez, Kartik 120, [place] David MONTESINOS, tel:+ [phone] [place], , [place]. [id number]. tel: tel:[phone] Associates David Mild hyperemesis Feb-0 Harriett Referring In Womens gravidarumEncount 5-201 Serina. Provider: Health PA, er for suprvsn of 8 700 Serina PO Box normal , Medical Harriett L, 1522, second Center [address] [place] [address], [id number] weeks Kartik Hernandez, gestation of 120, Center [id number], Hernandez, [facility] 120, [place] David MONTESINOS, tel:[phone] [place], , [place]. [id number]. tel: tel:[phone] Associates David Mild hyperemesis Kofi-2 Harriett Referring In Womens gravidarumEncount 4-201 Serina. Provider: Health MAYRA, er for suprvsn of 8 700 Serina PO Box normal , Medical Harriett L, 1522, second Center [address] [place] [address], [email or web address] weeks Kartik Hernandez, gestation of 120, Center [id number], Hernandez, [facility] 120, [place] David MONTESINOS, tel:[phone] [place], , [place]. [id number]. tel: tel:[phone] Associates David Mild hyperemesis Kofi-1 Harriett Referring In Womens gravidarumUnspeci 8-201 Serina. Provider: Health MAYRA, fied abnormal 8 700 Serina PO Box findings in Medical Harriett L, 1522, urineEncounter Center [address] [place] [address], for suprvsn of Kartik Hernandez, normal , 120, Center [id number], second Hernandez, [facility] 120, [place] [id number] weeks David MONTESINOS, tel:+[phone] gestation of [id number] [place], , [place]. [id number]. tel: tel:[phone] Associates David Mild hyperemesis Kofi-0 Harriett Referring In Womens gravidarumEncount 8-201 Serina. Provider: Health PA, er for suprvsn of 8 700 Serina PO Box normal , Medical Harriett L, 1522, first [id number] Center 700 Knik, weeks gestation Kartik Hernandez, of 120, Center [id number], David [facility] 120, [place] David MONTESINOS, tel:[phone] [place], , [place]. [id number]. tel: tel:[phone] Associates David Mild hyperemesis Kofi-0 Harriett Referring In Womens gravidarumEncount 3-201 Serina. Provider: Health PA, er for suprvsn of 8 700 Serina PO Box normal , Medical Harriett L, 1522, first [email or web address] Center 700 Knik, weeks gestation Kartik Hernandez, of 120, Center [id number], David [facility] 120, [place] David MONTESINOS, tel:[phone] [place], , [place]. [id number]. tel: tel:[phone] Ginette Hernandez Mild hyperemesis Dec-2 Harriett Referring In Womens gravidarumEncount 7-201 Serina. Provider: Health PA, er for suprvsn of 7 700 Serina PO Box normal , Medical Harriett L, 1522, first [id number] Center 700 Knik, weeks gestation Kartik Hernandez, of 120, Center [id number], David Kartik 120, [place] David MONTESINOS, tel:+ [phone] [place], , [place]. [id number]. tel: tel:[phone] Ginette Hernandez Mild hyperemesis Dec-1 Harriett Referring In Womens gravidarumEncount 9-201 Serina. Provider: Health PA, er for suprvsn of 7 700 Serina PO Box normal , Medical Harriett L, 1522, first [id number] Center 700 Knik, weeks gestation Kartik Hernandez, of 120, Center [id number], David Kartik 120, [place] David MONTESINOS, tel:+ [phone] [place], , [place]. [id number]. tel: tel: [phone] Associates David Mild hyperemesis Dec-1 Harriett Referring In Womens gravidarumEncount 3-201 Serina. Provider: Gladis NUNEZ, er for suprvsn of 7 700 Serina PO Box normal , Medical Harriett L, 1522, first [id number] [place] [address], weeks gestation , [facility], of 120, Center [id number], David [facility] 120, [place] David MONTESINOS, tel:[phone] [place], , [place]. [id number]. tel: tel: [phone] Associates David Mild hyperemesis Dec-0 Harriett Referring In Womens gravidarumEncntr 4-201 Serina. Provider: Gladis NUNEZ, screen for 7 700 Serina PO Box infections w sexl Medical Harriett L, 1522, mode of Center [address] [place] [address], transmissEnckole Hernandez, [facility], r for screening 120, [place] [id number], [facility], [place] infec/parastc David MONTESINOS, tel: diseasesEncounter [phone] [place], for suprvsn of , [place]. [id number]. normal , tel: tel: first [phone] trimesterEncounte r for screening of mother8 weeks gestation of Associates David Recurrent Nov-2 Gurinder Referring In Womens 7-201 Dinah. Provider: Gladis NUNEZ, lossHyperemesis 7 700 Serina PO Box gravidarum with Medical Harriett L, 1522, metabolic Center [address] [place] [address], disturbance , [facility], 120, [place] [id number], David [facility] 120, [place] David MONTESINOS, tel:[phone] [place], , [place]. [id number]. tel: tel:[phone] Associates David Recurrent Kings-3 Harriett Referring In Womens 0-201 Serina. Provider: Gladis NUNEZ, lossEncntr for 7 700 Serina PO Box f/u exam aft Medical Harriett Sanabria, 1522, trtmt for cond Center [address] [place] [address], otleonidas than angelina Hernandez, [facility], neopl 120, Center [id number], David, [facility] 120, [place] David MONTESINOS, tel:[phone] [place], , [place]. [id number]. tel: tel:[phone] Associates David Encounter for Apr-1 Harriett Referring In Womens screening for oth 9-201 Serina. Provider: Health MAYRA, infec/parastc 7 700 Serina PO Box diseases Medical Harriett L, 1522, Center [address] Dr Chirag, [facility] [place], 120, Center [id number], David, [facility] 120, [place] David MONTESINOS, tel:[phone] [place], , [place]. [id number]. tel: tel:[phone] Ginette Hernandez Encntr for f/u Yunior-1 Harriett Referring In Womens exam aft trtmt 1-201 Serina. Provider: Gladis NUNEZ, for cond oth than 6 700 Serina PO Box malig neopl Medical [facility] L, 1522, Center [address] Dr Chirag, [facility], 120, [place] [id number], David [facility] 120, [place] David MONTESINOS, tel:[phone] [place], , [place]. [id number]. tel: tel:[phone] Ginette Hernandez Encounter for Kings-0 Harriett Referring In Womens screening for oth 1-201 Serina. Provider: Health MAYRA, infec/parastc 6 700 Serina PO Box diseases Medical Harriett L, 1522, Center [address] Dr Chirag, [facility] [place], 120, [place] [id number], David, [facility] 120, [place] David MONTESINOS, tel:[phone] [place], , [place]. [id number]. tel: tel:[phone] Ginette Hernandez May-2 Rudolph In Womens 1-200 Maryan. Health MAYRA, 8 700 PO Box Medical 1522, Center Dr Chirag, [facility] [place], 120, [id number], [facility] [place], tel:[phone] , . tel:[phone] Family History Family Member Diagnosis Age At [...] Insurance type Covered green party ID Authorization(s) [facility] [id number] Social History Type Description Quantity Date Captured [...] Kerry Rosario BOOKED Future Order: Radiology Order Complete OB Ultrasound > 14 Ordered Weeks ([id number]) Date Type Problem Goal Intervention Status Start [...]
--- OUTSIDE RECORDS SUMMARY | 2017-11-29 07:06 | External Medical Summary | Continuity of Care Document ---
:1980 Author Organization [facility] [employer] [facility] Address [address] [place], [place] [id number] Phone Support Name Relationship Address Phone Khadar Rosario spouse [address] [phone] [place] [address] Allergies, Adverse Reactions, Alerts Substance Reaction Severity [...] hyperemesis Apr- Harriett Referring In Womens gravidarumEncounter 9-201 Serina. Provider: Gladis NUNEZ, for suprvsn of 7 700 Serina PO Box normal , Meenu Sanabria, 1522, first [id number] [place] [address], weeks gestation of Kartik Hernandez, 120, [place] [id number], David [place] 120, David MONTESINOS, tel:[phone] [facility] , . [id number]. tel: tel:[phone] Associates David Mild hyperemesis Apr- Harriett Referring In Womens gravidarumEncounter 3-201 Serina. Provider: Gladis NUNEZ, for suprvsn of 7 700 Serina PO Box normal , Meenu Sanabria, 1522, first [id number] [place] [address], weeks gestation of Kartik Hernandez, 120, [place] [id number], David [place] 120, David MONTESINOS, tel:[phone] [place] [address] , . [id number]. tel: tel:[phone] Associates David Mild hyperemesis Dec-0 Harriett Referring In Womens gravidarumEncntr 4-201 Serina. Provider: Gladis NUNEZ, screen for 7 700 Serina PO Box infections w sexl Meenu Sanabria, 1522, mode of Center 700 Chirag, transmissEncKartik arau[address] Dr, for screening for 120, Center [id number], [facility] infec/parastc [facility] 120, diseasesEncounter David MONTESINOS, tel: for suprvsn of [id number] [place], normal , , [place]. [id number]. first tel: tel: trimesterEncvan ness campuser [phone] for screening of mother8 weeks gestation of Associates David Harriett In Womens 4-201 Serina. Health MAYRA, 7 700 PO Box Medical 1522, [place] Dr Chirag, [facility], 120, [id number], Hernandez, [place], tel: [phone] , [place]. tel: [phone] Ginette Hernandez Recurrent Nov-2 Gurinder Referring In Womens lossHyperemesis 7-201 Dinah. Provider: Gladis NUNEZ, gravidarum with 7 700 Serina PO Box [facility] Medical Harriett L, 1522, disturbance Center [address], [facility], 120, [place] [id number], [place] [address], David MONTESINOS, tel:[phone] [place], , [place]. [id number]. tel: tel: [phone] Associates David Mar- Harriett In Womens 6-201 Serina. Gladis NUNEZ, 7 700 PO Box Medical [address], [address], [facility], 120, , [place], [place], tel:[phone] , [place]. tel: [phone] Ginette Hernandez Recurrent Kings-3 Harriett Referring In Womens lossEncntr for f/u 0-201 Serina. Provider: Gladis NUNEZ, exam aft trtmt for 7 700 Serina PO Box cond ot than [facility] Medical Harriett L, 1522, neoplm Center [address], [facility], 120, [place] [id number], [place] [address], David MONTESINOS, tel:[phone] [place], , [place]. [id number]. tel: tel: [phone] Ginette Hernandez Encounter for Apr-1 Harriett Referring In Womens screening for oth 9-201 Serina. Provider: Gladis NUNEZ, infec/parastc 7 700 Serina PO Box diseases Medical Harriett L, 1522, Center [address] Chirag, [facility] [place], 120, Center [id number], David, [place] 120, David MONTESINOS, tel:[phone] [place], , [place]. [id number]. tel: tel:[phone] Ginette Hernandez Encntr for f/u exam Yunior-1 Harriett Referring In Womens aft trtmt for cond 1-201 Serina. Provider: Gladis NUNEZ, zane alfaro 6 700 Serina PO Box neoplm Medical Harriett L, 1522, Center [address] Dr Chirag, [facility], 120, [place] [id number], [facility], David MONTESINOS, tel:[phone] [place], , [place]. [id number]. tel: tel: [phone] Ginette Hernandez Encounter for Kings-0 Harriett Referring In Womens screening for oth 1-201 Serina. Provider: lamine Andujar/clay 6 700 Serina PO Box diseases Medical Harriett L, 1522, Center [address], [facility], 120, [place] [id number], David, [place] 120, David MONTESINOS, tel:[phone] [facility] , [place]. [id number]. tel: tel: [phone] Ginette Hernandez May-2 Rudolph In Womens 1-200 Maryan. Gladis NUNEZ, 8 700 PO Box Medical 1522, [place] [address] Chirag, [place], 120, [id number], David, YAMEL, tel:[phone] , [place]. tel: [phone] Family History Family Member Diagnosis Age At [...] Insurance type Covered green party ID Authorization(s) TRACEY MONTESINOS BL [id number] Social History Type Description Quantity Date Captured [...]
--- OUTSIDE RECORDS SUMMARY | 2017-11-29 07:07 | External Medical Summary | Continuity of Care Document ---
:1980 Author Organization [facility] [employer] [facility] Address [address] [place], [place] [id number] Phone Support Name Relationship Address Phone Khadar Rosario spouse [address] [phone] [place] [address] Allergies, Adverse Reactions, Alerts Substance Reaction Severity [...] malig neoplm Mild hyperemesis gravidarum - Unspecified placental disorder, second - trimester Encounter for suprvsn of normal - , second trimester 23 weeks gestation of - Recurrent loss Hyperemesis [...] For Visit Members Ginette Hernandez Mild hyperemesis Apr-0 Harriett Referring In Womens gravidarumUnspeci 2-201 Serina. Provider: lita Andujar abnormal 8 700 Serina PO Box findings in Medical Harriett L, 1522, [facility] [address] [place] [address], for suprvsn of Kartik Hernandez, normal , 120, Center [id number], [facility] David [facility] 120, [place] [id number] weeks David MONTESINOS, tel:[phone] [place], , [place]. [id number]. tel: tel:[phone] Associates David Unspecified Apr-0 Harriett Referring In Womens Ultrasound placental 2-201 Serina. Provider: orly Andujar, second 8 700 Serina PO Box [email or web address] weeks Medical Harriett L, 1522, gestation of Center [address] [place] [address], Kartik Hernandez [place], 120, Center [id number], David [facility] 120, [place] David MONTESINOS, tel:[phone], , [place]. [id number]. tel: tel:[phone] Associates David Mild hyperemesis Mar-1 Harriett Referring In Womens gravidarumUnspeci 9-201 Serina. Provider: lita Andujar placental 8 700 Serina PO Box disorder, second Medical Harriett L, 1522, [facility] [address], for suprvsn of Kartik Hernandez, normal , 120, Center [id number], [facility] David [facility] 120, [place] [email or web address] weeks David MONTESINOS, tel:[id number] [place], , [place]. [id number]. tel: tel:[phone] Ginette Hernandez Unspecified Mar-0 Harriett Referring In Womens placental 5-201 Serina. Provider: Health PA, disorder, second 8 700 Serina PO Box trimesterEncounte Medical Harriett L, 1522, r for suprvsn of Center [address] [place] [address], normal , Kartik Hernandez, second 120, Center , [email or web address] weeks Hernandez, Kartik 120, [place] gestation of David MONTESINOS, tel:+ [phone] [place], , [place]. [id number]. tel: tel:[phone] Ginette Hernandez Unspecified Feb-1 Harriett Referring In Womens placental 9-201 Serina. Provider: Health MAYRA, disorder, second 8 700 Serina PO Box trimesterEncounte Medical Harriett L, 1522, r for suprvsn of Center [address] [place] [address], normal , Kartik Hernandez, second 120, Center , [email or web address] weeks Hernandez, Kartik 120, [place] gestation of David MONTESINOS, tel:[phone], , [place]. [id number]. tel: tel:[phone] Ginette Hernandez Encounter for Feb-1 Harriett Referring In Womens Ultrasound suprvsn of normal 9-201 Serina. Provider: Gladis NUNEZ, , second 8 700 Serina PO Box [email or web address] weeks Medical Harriett L, 1522, gestation of Center [address] [place] [address], Kartik Hernandez [place], 120, Center [id number], Hernandez, Kartik 120, [place] David MONTESINOS, tel:[phone] CT, , [place]. [id number]. tel: tel:[phone] Ginette Hernandez Mild hyperemesis Feb-0 Harriett Referring In Womens gravidarumEncount 5-201 Serina. Provider: Health MAYRA, er for suprvsn of 8 700 Serina PO Box normal , Medical Harriett L, 1522, second Center [address] [place] [address], [email or web address] weeks Kartik Hernandez, gestation of 120, Center , Hernandez, Kartik 120, [place] David MONTESINOS, tel:[phone] CT, , [place]. [id number]. tel: tel:[phone] Associates David Mild hyperemesis Kofi-2 Harriett Referring In Womens gravidarumEncount 4-201 Serina. Provider: Health PA, er for suprvsn of 8 700 Serina PO Box normal , Medical Harriett L, 1522, second Center [address] [place] [address], [email or web address] weeks Kartik Hernandez, gestation of 120, Center [id number], Hernandez, [facility] 120, US David MONTESINOS, tel:[phone] CT, , [place]. [id number]. tel: tel:[phone] Associates David Mild hyperemesis Kofi-1 Harriett Referring In Womens gravidarumUnspeci 8-201 Serina. Provider: Gladis NUNEZ, fied abnormal 8 700 Serina PO Box findings in Medical Harriett L, 1522, urineEncounter Center [address] [place] [address], for suprvsn of Kartik Hernandez, normal , 120, Center [id number], second Hernandez, [facility] 120, [place] [email or web address] weeks David MONTESINOS, tel:+ gestation of [phone] [place], , [place]. [id number]. tel: tel:[phone] Associates David Mild hyperemesis Kofi-0 Harriett Referring In Womens gravidarumEncount 8-201 Serina. Provider: Health PA, er for suprvsn of 8 700 Serina PO Box normal , Medical Harriett L, 1522, first [email or web address] [place] [address], weeks gestation Kartik Hernandez, of 120, Center [id number], Hernandez, [facility] 120, [place] David MONTESINOS, tel:[phone] CT, , [place]. [id number]. tel: tel:[phone] Associates David Mild hyperemesis Kofi-0 Harriett Referring In Womens gravidarumEncount 3-201 Serina. Provider: Health PA, er for suprvsn of 8 700 Serina PO Box normal , Medical Harriett L, 1522, first [email or web address] Center [address] [place], weeks gestation Kartik Hernandez, of 120, Center [id number], David [facility] 120, US David MONTESINOS, tel:[phone], , [place]. [id number]. tel: tel:[phone] Associates David Mild hyperemesis Dec-2 Harriett Referring In Womens gravidarumEncount 7-201 Serina. Provider: Health PA, er for suprvsn of 7 700 Serina PO Box normal , Medical Harriett L, 1522, first Center [address] [place] [address], weeks gestation Kartik Hernandez, of 120, Center [id number], David [facility] 120, US David MONTESINOS, tel:[phone], , [place]. [id number]. tel: tel:[phone] Associates David Mild hyperemesis Dec-1 Harriett Referring In Womens gravidarumEncount 9-201 Serina. Provider: Health PA, er for suprvsn of 7 700 Serina PO Box normal , Medical Harriett L, 1522, first Center [address] [place], [place] [address], weeks gestation Kartik Hernandez, of 120, Center [id number], David [facility] 120, US David MONTESINOS, tel:[phone], , [place]. [id number]. tel: tel:[phone] Associates David Mild hyperemesis Dec-1 Harriett Referring In Womens gravidarumEncount 3-201 Serina. Provider: Health PA, er for suprvsn of 7 700 Serina PO Box normal , Medical Harriett L, 1522, first [id number] Center [address] [place], weeks gestation Kartik Hernandez, of 120, Center [id number], David [facility] 120, US David MONTESINOS, tel:[phone] YAMEL, , [place]. [id number]. tel: tel:[phone] Associates David Mild hyperemesis Dec-0 Harriett Referring In Womens gravidarumEncntr 4-201 Serina. Provider: Health MAYRA, screen for 7 700 Serina PO Box infections w sexl Meenu Sanabria, 1522, mode of Center 700 [address], transmissEnckole Hernandez, [facility] YAMEL, r for screening 120, [place] [id number], for oth David [facility] 120, infec/parastc David MONTESINOS, tel:+ diseasesEncounter [phone] CT, for suprvsn of , [place]. [id number]. normal , tel: tel:[phone] trimesterEncounte r for screening of mother8 weeks gestation of Associates David Recurrent Mar- Gurinder Referring In Womens 7-201 Dinah. Provider: Gladis NUNEZ, lossHyperemesis 7 700 Serina PO Box gravidarum with Meenu Lorenzana L, 1522, metabolic Center [facility] [address], [facility], 120, [place] , David [facility] 120, US David MONTESINOS, tel: [phone] [place], , [place]. [id number]. tel: tel:[phone] Ginette Hernandez Recurrent Oct- Harriett Referring In Womens 0-201 Serina. Provider: Gladis NUNEZ, lossEncntr for 7 700 Serina PO Box f/u exam aft Medical Harriett L, 1522, trtmt for cond Center [address], [address], [facility] YAMEL, neopl 120, [place] [id number], David [facility] 120, US David MONTESINOS, tel: [phone] [place], , [place]. [id number]. tel: tel:[phone] Ginette Hernandez Encounter for Harriett Referring In Womens screening for oth 9-201 Serina. Provider: Gladis NUNEZ, infec/parastc 7 700 Serina PO Box diseases Meenu Sanabria, 1522, Center [address], [facility], 120, [place] [id number], David [facility] 120, David MONTESINOS, tel: [phone] YAMEL, , . [id number]. tel: tel: [phone] Ginette Hernandez Encntr for f/u Nov- Harriett Referring In Womens exam aft trtmt 1-201 Serina. Provider: Health MAYRA, for cond oth than 6 700 Serina PO Box malig neoplm Medical [facility] L, 1522, Center [facility] [address] Chirag, [facility], 120, [place] [id number], [facility] 120, David MONTESINOS, tel: [phone] [facility] , . [id number]. tel: tel: [phone] Ginette Hernandez Encounter for Kings-0 Harriett Referring In Womens screening for oth 1-201 Serina. Provider: Gladis NUNEZ, infec/parastc 6 700 Serina PO Box diseases Medical [facility] L, 1522, Center [address], [facility], 120, [place] [id number], [facility] 120, David MONTESINOS, tel: [phone] [facility] , . [id number]. tel: tel: [phone] Ginette Hernandez September-2 Rudolph In Womens 1-200 Maryan. Health MAYRA, 8 700 PO Box Medical 1522, [place] [address] Chirag, [facility], 120, [id number], Hernandez, YAMEL, tel: [phone] , . tel: [phone] Family History Family Member Diagnosis Age At [...] name Insurance type Covered libertarian ID Authorization(s) TRACEY ALEMAN [id number] Social History Type Description Quantity Date Captured [...] Future Order: Radiology Order Ultrasound OB Follow-up (33116) Ordered Future Order: Radiology Order Complete OB Ultrasound > 14 Ordered Weeks (21671) Date Type Problem Goal Intervention Status Start [...]
--- OUTSIDE RECORDS SUMMARY | 2017-11-29 07:07 | External Medical Summary | Continuity of Care Document ---
:1980 Author Organization [facility] [employer] [facility] Address [address] [place], [place] [address] Phone Support Name Relationship Address Phone Khadar Rosario spouse [address] [phone] [place] [address] Allergies, Adverse Reactions, Alerts Substance Reaction Severity Status No Known Drug Allergies Unknown Active Medications Medication Instructions Dosage Effective Dates Status Comments (start - stop) Diclegis 10 mg-10 take 1 tablet by - Active mg tablet,delayed oral route every release day in the morning, 1 tablet in the mid-afternoon, and 2 tablets at bedtime 28 mg take 1 by Oral route Not Available - Active iron-800 mcg every day tablet Problems Condition Effective Dates (start - stop) Clinical Status Encntr for f/u exam aft trtmt for cond - oth than malig neoplm Mild hyperemesis gravidarum - Encounter for suprvsn of normal - , first trimester 13 weeks gestation of - Recurrent loss Hyperemesis [...] Hernandez Mild hyperemesis Harriett Referring In Womens gravidarumUnspecifi 8-201 Serina. Provider: Gladis NUNEZ, ed abnormal 8 700 Serina PO Box findings in Meenu Sanabria, 1522, urineEncounter for [address], suprvsn of normal Kartik Hernandez, , second 120, Center [id number], [email or web address] weeks David [facility] 120, [place] gestation of YAMEL Hernandez, tel: [phone] [place], [address] , [place]. [id number]. tel: tel: [phone] Associates David Mild hyperemesis Harriett Referring In Womens gravidarumEncounter 8-201 Serina. Provider: Gladis NUNEZ, for suprvsn of 8 700 Serina PO Box normal , Meenu Sanabria, 1522, first [email or web address] Center [address], weeks gestation of Kartik Hernandez, 120, Center [id number], David [facility] 120, [place] David MONTESINOS, tel:[phone] [place], , [place]. [id number]. tel: tel:[phone] Associates David Mild hyperemesis Kofi-0 Harriett Referring In Womens gravidarumEncounter 3-201 Serina. Provider: Health PA, for suprvsn of 8 700 Serina PO Box normal , Medical Harriett L, 1522, first [email or web address] [place] [address], weeks gestation of Kartik Hernandez, 120, Center [id number], David [facility] 120, [place] David MONTESINOS, tel:[phone] [place], , [place]. [id number]. tel: tel:[phone] Associates David Mild hyperemesis Dec-2 Harriett Referring In Womens gravidarumEncounter 7-201 Serina. Provider: Health PA, for suprvsn of 7 700 Serina PO Box normal , Medical Harriett L, 1522, first [id number] [place] [address], weeks gestation of Kartik Hernandez, 120, Center [id number], David [facility] 120, [place] David MONTESINOS, tel:[phone] [place], , [place]. [id number]. tel: tel:[phone] Associates David Mild hyperemesis Dec-1 Harriett Referring In Womens gravidarumEncounter 9-201 Serina. Provider: Health PA, for suprvsn of 7 700 Serina PO Box normal , Medical Harriett L, 1522, first Center [address] [place] [address], weeks gestation of Kartik Hernandez, 120, Center [id number], David [facility] 120, [place] David MONTESINOS, tel:[phone] [place], , [place]. [id number]. tel: tel:[phone] Associates David Mild hyperemesis Dec-1 Harriett Referring In Womens gravidarumEncounter 3-201 Serina. Provider: Glaids NUNEZ, for suprvsn of 7 700 Serina PO Box normal , Medical Harriett L, 1522, first [email or web address] Center [facility] Chirag, weeks gestation of Dr, [facility] Meenu [place], 120, Center [id number], [facility], [place] David MONTESINOS, tel:[phone] [place], , [place]. [id number]. tel: tel:[phone] Associates David Mild hyperemesis Dec-0 Harriett Referring In Womens gravidarumEncntr 4-201 Serina. Provider: Gladis NUNEZ, screen for 7 700 Serina PO Box infections w sexl Medical Harriett Sanabria, 1522, mode of Center [facility] Chirag, transmissEncvan Hernandez, [facility], for screening for 120, Center [id number], ot infec/parastc [place] [address], [facility] [place] David MONTESINOS, tel:+ for suprvsn of [phone] [place], normal , , [place]. [id number]. first tel: tel:+[phone] [facility]cl[facility] [place] [phone] for screening of mother8 weeks gestation of Associates David Recurrent Mar- Gurinder Referring In Womens lossHyperemesis 7-201 Dinah. Provider: Gladis NUNEZ, gravidarum with 7 700 Serina PO Box metabolic Meenu Lorenzana L, 1522, disturbance Center [facility] Dr Chirag [facility] Me[place], 120, [place] [id number], David [facility] 120, [place] David MONTESINOS, tel:+ [phone] [place], , [place]. [id number]. tel: tel:[phone] Associates David Recurrent Kings-3 Harriett Referring In Womens lossEncntr for f/u 0-201 Serina. Provider: Gladis NUNEZ, exam aft trtmt for 7 700 Serina PO Box cond oth than malig Meenu Lorenzana L, 1522, neoplm Center [facility] Dr Chirag, [facility] Me[place], 120, [place] [id number], David [facility] 120, [place] David MONTESINOS, tel:[phone] [place], , [place]. [id number]. tel: tel:[phone] Ginette Hernandez Encounter for Apr-1 Harriett Referring In Womens screening for oth 9-201 Serina. Provider: Health MAYRA, infec/parastc 7 700 Serina PO Box diseases Medical Harriett L, 1522, Center [address] Chir[address], [facility], 120, [place] [id number], David, [facility] 120, David MONTESINOS, tel:[phone] [place], , [place]. [id number]. tel: tel:[phone] Ginette Hernandez Encntr for f/u exam Yunior- Harriett Referring In Womens aft trtmt for cond 1-201 Serina. Provider: Gladis NUNEZ, [facility] 6 700 Serina PO Box neoplm Medical [facility] L, 1522, Center [facility] Dr Chirag, [facility], 120, [place] [id number], David, [facility] 120, David MONTESINOS, tel:[phone] [place], , [place]. [id number]. tel: tel:[phone] Ginette Hernandez Encounter for Kings-0 Harriett Referring In Womens screening for oth 1-201 Serina. Provider: Gladis NUNEZ, infec/parastc 6 700 Serina PO Box diseases Medical [facility] L, 1522, Center [facility] [address] Chirag, [facility] [place], 120, [place] [id number], David, [facility] 120, [place] David MONTESINOS, tel:[phone] [place], , [place]. [id number]. tel: tel:[phone] Ginette Hernandez September-2 Rudolph In Womens 1-200 Maryan. Health MAYRA, 8 700 PO Box Medical 1522, Center Dr Chirag, [facility] [place], 120, [id number], David, YAMEL, tel:[phone] , [place]. tel: [phone] Family History Family Member Diagnosis Age At [...] name Insurance type Covered democrat ID Authorization(s) [facility] YAMEL [id number] Social History Type Description Quantity Date Captured [...]
[2017-11-29] MEDS ORDERED: OXYTOCIN DRIP 30 UNIT/500 ML ML IV PRN (07:21)
[2017-11-29] MEDS ORDERED: D5LR 1,000 ML IV PRN (07:21)
[2017-11-29] MEDS ORDERED: LIDOCAINE 1% (10mg/ml) 2mL INJ PF SDV ID PRN (07:23)
[2017-11-29] MEDS ORDERED: ACETAMINOPHEN 500 MG TABLET PO PRN ×2 (07:23→15:01)
[2017-11-29] MEDS ORDERED: CARBOPROST 250 MCG/ML INJECTION IM PRN (07:23)
[2017-11-29] MEDS ORDERED: CALCIUM CARBONATE Chewable 500mg TABLET PO PRN ×2 (07:23→15:01)
[2017-11-29] MEDS ORDERED: MAG-AL + SIM ORAL LIQUID 30ml PO PRN ×2 (07:23→15:01)
[2017-11-29] MEDS ORDERED: METHYLERGONOVINE 0.2 MG/ML INJECTION IM PRN (07:23)
[2017-11-29 07:36] VITALS: BMI 31.0
[2017-11-29] MEDS: LR 1,000 ML IV PRN ×2 (07:46→10:34)
--- NOTE | 2017-11-29 08:31 | Anesthesia Preoperative Report ---
Anesthesia Epidural/Spinal Rec - Date and Time Date: 11/29/17 Procedure: Labor Epidural Plan: Epidural - Vital Signs Vital Signs: Temperature 98 F 11/29/17 08:01 Pulse Rate 64 11/29/17 08:01 Respiratory Rate 18 11/29/17 08:01 Blood Pressure 131/84 11/29/17 08:01 Pulse Oximetry 97 11/29/17 08:01 /Para: P:3 - Medictaions & Allergies Inpatient Medications: Current Medications Acetaminophen (Tylenol) 500 - 1,000 mg PO Q4H PRN PRN Reason: Pain Al Hydroxide/Mg Hydroxide (Maalox Plus) 30 ml PO Q3H PRN PRN Reason: Indigestion Calcium Carbonate (Tums) 500 - 1,000 mg PO Q2H PRN PRN Reason: Indigestion Carboprost Tromethamine (Hemabate) 250 mcg IM O PRN PRN Reason: .Downtime Dextrose/Lactated Ringer's (Dextrose 5%-Lactated Ringers) 1,000 mls @ 125 mls/ hr IV .Q8H PRN PRN Reason: Labor Last Admin: 11/29/17 07:47 Dose: 125 mls/hr Oxytocin (Pitocin Drip) 30 unit in 500 mls @ 2 mls/hr IV .Q24H PRN; Protocol PRN Reason: Induction/Augmentation Last Admin: 11/29/17 07:47 Dose: 2 mls/hr Lactated Ringer's (Lactated Ringers) 1,000 mls @ 999 mls/hr IV .Q1H1M PRN Last Admin: 11/29/17 07:46 Dose: 999 mls/hr Lidocaine HCl (Xylocaine-Mpf 1% Vial) 0.2 mg ID O PRN PRN Reason: IV Start Methylergonovine Maleate (Methergine) 0.2 mg IM O PRN Misoprostol (Cytotec) 800 mcg IL ONCE PRN Allergies/Adverse Reactions: Allergies Allergy/AdvReac Type Severity Reaction Status Date / Time No Known Drug Allergies Allergy Unknown Verified 10/27/16 04:20 - Home Medications Home Medications: Home Medications Medication Instructions Recorded Confirmed Type Vit Calc,Iron,Folic 1 each PO DAILY 11/06/17 11/06/17 History [ Vitamins] - Medical History Respiratory: Reports: Asthma (WITH EXERCISE) DENIES: Sleep Apnea Cardiovascular: DENIES: Angina, Hypertension Gastrointestional: DENIES: Gastroesophageal Reflux Disease Other History: Reports: Anesthesia Reactions (HARD TO WAKE UP) - Surgical History Reproductive Surgery/Treatment: Reports: Dilation and Curettage (x2) DENIES: Section Anesthesia Reactions: None Hx Family Anesthesia Reaction: No History of Motion Sickness: No - Social History Smoking Status: Never smoker Second Hand Exposure: No Substance Use Type: does not use Alcohol Intake: never Alcohol Intake Frequency: does not drink Hx Chewing Tobacco Use: No - Pertinent Findings Lab Data: CBC and BMP 11/29/17 07:39 - Physical Exam Respiratory Exam: lungs clear, bilateral breath sounds equal Cardiovascular Exam: regular rate and rhythm - Airway Assessment Mallampati Score: II TMD: 3 Fingerbreadths Neck Extension: good Overall Assessment: may be difficult mask vent, may be difficult intubation - ASA ASA Score: 2 - Discussion Discussion: Discussed risks/options/alternatives of anesthesia and questions answered. Patient consents. Nursing pain assessment noted. Anesthesia Discussion: spouse Attestation Statement: Prior to the delivery of any anesthetic medication, I examined the patient, developed the plan, obtained the patient's consent and discussed the risk and benefits of the procedure with the patient/guardian.
[2017-11-29] MEDS ORDERED: SUFENTANIL INFIL ONE (12:00)
[2017-11-29] MEDS ORDERED: NS INFIL ONE (12:00)
[2017-11-29] MEDS ORDERED: ROPIVACAINE INFIL ONE (12:00)
[2017-11-29] MEDS ORDERED: HYDROCODONE/APAP 5mg/325mg TABLET PO PRN (15:01)
[2017-11-29] MEDS ORDERED: DiphenhydrAMINE 25 MG CAPSULE PO PRN (15:01)
[2017-11-29] MEDS ORDERED: HYDROCORTISONE 2.5% CREAM 30gm RECTALLY PRN (15:01)
--- NOTE | 2017-11-29 20:10 | Labor and Delivery Note ---
DATE OF DELIVERY 11/29/2017 NARRATIVE Ms. Rosario progressed very rapidly to complete and +2 presentation. She began to push with excellent effort. It was evident that the baby was in the straight occiput posterior presentation. heart tones had experienced some variable decelerations throughout labor with reactivity in between. However , as she pushed they worsened. Baby presented to the +3 position. I discussed with Kerry and her , Khadar, the possibility of assisting with a vacuum. Baby's heart rate was dropping into the 70s and 80s with intermittent rises. The soft cup Mityvac was applied without difficulty. The patient pushed over the ensuing two contractions and delivered the head in the straight OP presentation. There was a tight nuchal cord x 1 that was doubly clamped and cut. With another push the baby delivered in total. Baby was then given to the nurses and to Respiratory Therapy for care. This is a liveborn female with Apgars of 7/9. She weighed 7 pounds, 6.8 ounces. After a short while the placenta delivered spontaneously intact. It had a normal configuration and normal-appearing three-vessel cord. There was a second-degree midline laceration that was repaired in the usual fashion with a 2-0 Vicryl. It was slightly irregular and to reapproximate an irregularity at the introitus a 3-0 chromic was used in a subcuticular stitch. Total blood loss was approximately 400 mL. It became brisk for moment so we gave IM Methergine but this really resolved very quickly. At the time of this dictation mother and baby are doing well. [facility]
[2017-11-29] MEDS: IBUPROFEN 800 MG TABLET PO SCH (20:18)
[2017-11-30] MEDS: IBUPROFEN 800 MG TABLET PO SCH ×3 (03:34→18:46)
--- NOTE | 2017-11-30 08:29 | OB/GYN Progress Note ---
OB-PP Progress Note - General PPD1 Maternal Group B Strep: Negative Maternal Rh: positive Maternal Rubella Status: Immune - Subjective Date: 11/30/17 Lochia: Minimal Pain: controlled Voiding: voiding Nausea or Vomiting Present: No - Objective Vital Signs: Last Vital Signs Temp 98.3 F 11/30/17 03:30 Pulse 55 L 11/30/17 03:30 Resp 16 11/30/17 03:30 BP 114/73 11/30/17 03:30 Pulse Ox 97 11/30/17 03:30 General: alert and oriented Abdomen: fundus firm, non-tender Extremities: non-tender Edema: none - Assessment Assessment: SP, - Plan Plan: routine care Expected date of discharge: 12/01/17
--- NOTE | 2017-11-30 08:36 | Anesthesia Postoperative Note ---
- Date and Time Date: 11/30/17 Time: 08:36 - Status Patient Participated in Evaluation: Patient Participated in Person Vital Signs: Temperature 98.3 F 11/30/17 03:30 Pulse Rate 55 L 11/30/17 03:30 Respiratory Rate 16 11/30/17 03:30 Blood Pressure 114/73 11/30/17 03:30 Pulse Oximetry 97 11/30/17 03:30 Respiratory Function: Airway Patent Cardiovascular Function: Regular Pulse Mental Status: Alert and Oriented Pain Intensity: 2 Hydration: Taking PO Fluids Complications During Recover: None Apparent - Follow-Up Instructions Instructions: Per Surgeon
[2017-11-30] MEDS: DOCUSATE CALCIUM 240 MG CAPSULE PO SCH (11:35)
[2017-11-30 11:48] VITALS: RESP 16
[2017-11-30 21:13] VITALS: O2SAT 97
[2017-12-01] MEDS: IBUPROFEN 800 MG TABLET PO SCH (05:43)
[2017-12-01] MEDS: DOCUSATE CALCIUM 240 MG CAPSULE PO SCH (05:46)
[2017-12-01 05:55] VITALS: BP 120/80; PULSE 55; TEMP 97.7
--- NOTE | 2017-12-01 09:25 | OB/GYN Progress Note ---
OB-PP Progress Note - General PPD2 Maternal Group B Strep: Negative Maternal Rh: positive Maternal Rubella Status: Immune - Subjective Date: 12/01/17 Lochia: Minimal Pain: controlled Voiding: voiding - Objective Vital Signs: Last Vital Signs Temp 97.7 F 12/01/17 05:54 Pulse 55 L 12/01/17 05:54 Resp 16 12/01/17 05:54 BP 120/80 12/01/17 05:54 Pulse Ox 97 12/01/17 05:54 Urine Output: good General: alert and oriented Abdomen: fundus firm, non-tender, soft Extremities: non-tender - Assessment Assessment: VAVD - Plan Plan: routine care, discharge home, continue PNV
== END 2017-12-01 10:28 | disposition home or self-care (01) | DRG 775 ==
LOC: MC 06:57
PROVIDERS: ADMIT Obstetrics & Gynecology; ATTEND Obstetrics & Gynecology